=== PATIENT | male | born 1965 | race African-American/Black ===

== ENCOUNTER 2019-03-03 07:45 | Inpatient (IN) | payer MEDICAID ==
[2019-03-03] VITALS (7 sets, daily range): BP systolic 142–170; BP diastolic 97–106
[~2019-03-03] VITALS: Ht 170.2 cm; Wt 83.1 kg
[2019-03-03] MEDS ORDERED: SODIUM CHLORIDE 0.9% 1,000 ML IV ONE (08:05)
[2019-03-03] MEDS ORDERED: HALOPERIDOL LACTATE 5MG/ML VIAL IM ONE ×2 (08:29→08:30)
[2019-03-03 09:59] LABS: PROTHROMBIN TIME 10.7 sec (9.6-11.0)
[2019-03-03 10:02] LABS: BASOPHILS % 0.3 % (0.0-2.0); HEMATOCRIT. 42.3 % (42.0-52.0); HEMOGLOBIN. 14.5 g/dL (14.0-18.0); LYMPHOCYTES % 12.8 % (20.0-50.0); MEAN CORPUSCULAR VOLUME 90.7 fL (80.0-94.0); MEAN PLATELET VOLUME 9.7 fl (7.4-10.4); MONOCYTES % 2.6 % (2.0-8.0); NEUTROPHILS % 84.3 % (40.0-76.0); PLATELET 252 x1000/uL (130-400); RED BLOOD CELL COUNT 4.66 mill/uL (4.7-6.1)
[2019-03-03 10:02] LABS: CLARITY URINE CLOUDY (CLEAR); COLOR URINE YELLOW (YELLOW); KETONES URINE TRACE (NEGATIVE); LEUKOCYTE ESTERASE URINE 1+ (NEGATIVE); NITRITE URINE NEGATIVE (NEGATIVE); OCCULT BLOOD URINE 2+ (NEGATIVE); PROTEIN URINE 2+ (NEGATIVE); UROBILINOGEN URINE 0.2 E.U./dL (0.2-1.0)
[2019-03-03 10:25] LABS: CHLORIDE 99 mEq/L (98-107)
[2019-03-03] MEDS ORDERED: SODIUM CHLORIDE 0.9% 1000ML BAG (SEPSIS BOLUS) IV ONE (10:30)
[2019-03-03] MEDS ORDERED: CEFTRIAXONE 2 G PREMIX 50 ML IV ONE (10:30)
[2019-03-03 10:31] LABS: ETHANOL BLOOD < 10 mg/dL
[2019-03-03 10:34] LABS: *AMPHETAMINES SCREEN URINE NEGATIVE (NEGATIVE); *BARBITURATES SCREEN URINE NEGATIVE (NEGATIVE); *BENZODIAZEPINES SCREEN URINE NEGATIVE (NEGATIVE); CANNABINOID URINE SCREEN NEGATIVE (NEGATIVE); PHENCYCLIDINE URINE SCREEN NEGATIVE (NEGATIVE)
[2019-03-03 10:34] LABS: CREATINE KINASE 649 IU/L (39-308)
[2019-03-03 10:35] LABS: *COCAINE SCREEN URINE NEGATIVE (NEGATIVE); METHADONE URINE SCREEN NEGATIVE (NEGATIVE); OPIATES URINE SCREEN NEGATIVE (NEGATIVE)
[2019-03-03 10:37] LABS: LDL CHOLESTEROL 109 mg/dL (5-100)
[2019-03-03 10:45] LABS: CARBAMAZEPINE < 0.5 ug/mL (4-12); PHENOBARBITAL < 2.1 ug/mL (15.0-40.0)
[2019-03-03] MEDS ORDERED: ACETAMINOPHEN 325MG TABLET PO PRN (11:15)
[2019-03-03] MEDS ORDERED: IPRATROPIUM/ALBUTEROL 0.5-3(2.5)MG/3ML NEB HHN PRN (11:15)
[2019-03-03] MEDS ORDERED: ONDANSETRON HCL 4MG/2ML INJ IV PRN (11:15)
[2019-03-03] MEDS ORDERED: GUAIFENESIN 200MG/10ML SUGAR FREE UDC PO PRN (11:15)
[2019-03-03] MEDS ORDERED: DOCUSATE SODIUM 100MG CAPSULE PO PRN (11:15)
[2019-03-03] MEDS ORDERED: SODIUM CHLORIDE 0.9% 1,000 ML IV SCH (11:30)
[2019-03-03] MEDS: ENOXAPARIN 40MG/0.4ML SYR SUBCUT SCH (12:36)
[2019-03-03] MEDS ORDERED: HYDRALAZINE 20MG/ML VIAL IV NR (14:45)
[2019-03-03] MEDS ORDERED: CLONIDINE 0.1MG TABLET PO PRN (15:00)
[2019-03-03] MEDS ORDERED: DILTIAZEM HCL 5MG/ML 5ML VIAL IV PRN (15:00)
[2019-03-03] MEDS ORDERED: IOHEXOL-350 100 ML BOTTLE ONE (15:07)
[2019-03-03] MEDS ORDERED: ACETAMINOPHEN 650MG SUPP PR NR (15:30)
[2019-03-03 16:11] LABS: PHOSPHORUS 2.6 mg/dL (2.5-4.9)
[2019-03-03 16:18] LABS: CREATINE KINASE MB FRACTION 5.7 ng/mL (0.5-3.6)
[2019-03-03] MEDS: HALOPERIDOL LACTATE 5MG/ML VIAL IM PRN (16:26)
[2019-03-03] MEDS: DIPHENHYDRAMINE 50MG/ML VIAL IV PRN (18:51)
[2019-03-03] MEDS: DEXT 5%/0.45% NACL 1000ML 1,000 ML IV SCH (19:36)
[2019-03-03] MEDS ORDERED: DEXTROSE 50% WATER 50ML SYRINGE IV PRN (20:45)
[2019-03-03] MEDS ORDERED: LEVETIRACETAM 500MG PREMIX 100 ML IV SCH (21:00)
[2019-03-03] MEDS ORDERED: CLONIDINE HCL 0.2MG/24HR PATCH TD SCH (21:00)
[2019-03-03] MEDS: FAMOTIDINE 20MG TABLET PO SCH (21:00)
[2019-03-03] MEDS: INSULIN LISPRO 100 UNITS/ML SUBCUT SCH (21:45)
[2019-03-03] MEDS: LEVETIRACETAM 500MG in SODIUM CHLORIDE 0.9% 100ML IV SCH (21:45)
[2019-03-03] MEDS: PHENYTOIN SODIUM 300 MG in SODIUM CHLORIDE 0.9% 50 ML IV SCH (21:46)
[2019-03-03] MEDS: BLOOD SUGAR DIAGNOSTIC STRIP TEST SCH (21:46)
[2019-03-03] MEDS: LORAZEPAM 2MG/ML CPJ IV PRN (21:59)
[2019-03-03] MEDS ORDERED: PHENYTOIN SODIUM EXTENDED 100MG CAPSULE PO SCH (22:00)
[2019-03-04] VITALS (11 sets, daily range): BP systolic 108–176; BP diastolic 68–118
[2019-03-04 02:14] LABS: HEPATITIS B SURFACE ANTIGEN REACTIVE PEND CONFIR
[2019-03-04] MEDS: HALOPERIDOL LACTATE 5MG/ML VIAL IM PRN (03:32)
[2019-03-04] MEDS: LORAZEPAM 2MG/ML CPJ IV PRN ×2 (05:08→20:30)
[2019-03-04] MEDS: DEXT 5%/0.45% NACL 1000ML 1,000 ML IV SCH ×2 (06:55→18:43)
[2019-03-04 07:29] LABS: CHLORIDE 103 mEq/L (98-107)
[2019-03-04 07:46] LABS: PHOSPHORUS 2.9 mg/dL (2.5-4.9)
[2019-03-04] MEDS: BLOOD SUGAR DIAGNOSTIC STRIP TEST SCH ×4 (07:46→21:16)
[2019-03-04 07:47] LABS: LDL CHOLESTEROL 95 mg/dL (5-100)
[2019-03-04 07:50] LABS: HDL CHOLESTEROL 36 mg/dL (40-59)
[2019-03-04 07:59] LABS: BASOPHILS % 0.5 % (0.0-2.0); EOSINOPHILS % 0.7 % (0.0-5.0); HEMATOCRIT. 36.9 % (42.0-52.0); HEMOGLOBIN. 12.5 g/dL (14.0-18.0); LYMPHOCYTES % 20.2 % (20.0-50.0); MEAN CORPUSCULAR HEMOGLOBIN 30.7 pg (28.0-32.0); MEAN CORPUSCULAR VOLUME 90.8 fL (80.0-94.0); MEAN PLATELET VOLUME 9.6 fl (7.4-10.4); MONOCYTES % 6.5 % (2.0-8.0); NEUTROPHILS % 72.1 % (40.0-76.0); PLATELET 231 x1000/uL (130-400); RED BLOOD CELL COUNT 4.06 mill/uL (4.7-6.1); RED CELL DISTRIBUTION WIDTH 13.5 % (11.6-14.6)
[2019-03-04 08:03] LABS: CREATINE KINASE 2219 IU/L (39-308)
[2019-03-04] MEDS: FAMOTIDINE 20MG TABLET PO SCH ×2 (08:23→20:52)
[2019-03-04] MEDS: LEVETIRACETAM 500MG in SODIUM CHLORIDE 0.9% 100ML IV SCH ×2 (08:47→21:23)
[2019-03-04] MEDS: INSULIN LISPRO 100 UNITS/ML SUBCUT SCH ×4 (08:48→21:19)
[2019-03-04] MEDS: CEFTRIAXONE 1 G PREMIX 50 ML IV SCH (10:09)
[2019-03-04] MEDS: ENOXAPARIN 40MG/0.4ML SYR SUBCUT SCH (11:59)
[2019-03-04] MEDS: NEOMY SULF/BACITRAC ZN/POLY OINT 28GM TOP SCH (12:56)
[2019-03-04] MEDS ORDERED: VANCOMYCIN 1,750 MG in DEXT 5% WATER 500 ML IV NR (15:30)
[2019-03-04] MEDS: AMLODIPINE 5MG TABLET PO SCH ×2 (15:54→16:38)
[2019-03-04 16:40] LABS: T4 FREE 1.18 ng/dL (0.76-1.46)
[2019-03-04 17:45] LABS: FOLIC ACID (FOLATE) SERUM 11.5 ng/mL (>5.38)
[2019-03-04] MEDS: PHENYTOIN SODIUM 300 MG in SODIUM CHLORIDE 0.9% 50 ML IV SCH (22:12)
[2019-03-05] VITALS (23 sets, daily range): BP systolic 139–187; BP diastolic 64–113
[2019-03-05] MEDS: HALOPERIDOL LACTATE 5MG/ML VIAL IM PRN (02:00)
[2019-03-05] MEDS ORDERED: VANCOMYCIN 1250MG in DEXTROSE 5% WATER 250ML IV SCH ×2 (02:00→18:00)
[2019-03-05] MEDS: LORAZEPAM 2MG/ML CPJ IV PRN ×3 (05:21→19:14)
[2019-03-05 06:37] LABS: CHLORIDE 104 mEq/L (98-107)
[2019-03-05 06:48] LABS: PHOSPHORUS 2.9 mg/dL (2.5-4.9)
[2019-03-05 07:08] LABS: CREATINE KINASE 2412 IU/L (39-308)
[2019-03-05 07:19] LABS: BASOPHILS % 0.6 % (0.0-2.0); HEMATOCRIT. 38.2 % (42.0-52.0); LYMPHOCYTES % 30.9 % (20.0-50.0); MEAN CORPUSCULAR HEMOGLOBIN 30.9 pg (28.0-32.0); MEAN CORPUSCULAR VOLUME 90.9 fL (80.0-94.0); MEAN PLATELET VOLUME 9.5 fl (7.4-10.4); NEUTROPHILS % 58.5 % (40.0-76.0); PLATELET 245 x1000/uL (130-400); RED BLOOD CELL COUNT 4.21 mill/uL (4.7-6.1); RED CELL DISTRIBUTION WIDTH 13.2 % (11.6-14.6)
[2019-03-05] MEDS: BLOOD SUGAR DIAGNOSTIC STRIP TEST SCH ×4 (07:30→21:42)
[2019-03-05 09:06] LABS: HIV SCREEN 4G Non Reactive (Non Reactive)
[2019-03-05] MEDS: AMLODIPINE 5MG TABLET PO SCH (09:16)
[2019-03-05] MEDS: LEVETIRACETAM 500MG in SODIUM CHLORIDE 0.9% 100ML IV SCH ×2 (09:22→21:18)
[2019-03-05] MEDS: DEXT 5%/0.45% NACL 1000ML 1,000 ML IV SCH ×2 (09:22→18:12)
[2019-03-05] MEDS: FAMOTIDINE 20MG TABLET PO SCH ×2 (09:50→21:18)
[2019-03-05] MEDS: CEFTRIAXONE 1 G PREMIX 50 ML IV SCH (10:17)
[2019-03-05] MEDS: INSULIN LISPRO 100 UNITS/ML SUBCUT SCH ×4 (10:17→21:19)
[2019-03-05] MEDS ORDERED: PHENYTOIN SODIUM 700 MG in SODIUM CHLORIDE 0.9% 100 ML IV NR (10:30)
[2019-03-05] MEDS: ENOXAPARIN 40MG/0.4ML SYR SUBCUT SCH (10:31)
[2019-03-05 13:11] LABS: HBSAG CONFIRMATION Positive (.); HBSAG SCREEN Confirm. indicated (Negative)
[2019-03-05] MEDS: NEOMY SULF/BACITRAC ZN/POLY OINT 28GM TOP SCH (14:21)
[2019-03-05] MEDS ORDERED: CLONIDINE HCL 0.3MG/24HR PATCH TD SCH (16:00)
[2019-03-05] MEDS: HYDRALAZINE 20MG/ML VIAL IV PRN (19:58)
[2019-03-05] MEDS: PHENYTOIN SODIUM 300 MG in SODIUM CHLORIDE 0.9% 50 ML IV SCH (21:30)
[2019-03-06] VITALS (13 sets, daily range): BP systolic 90–164; BP diastolic 53–103
[2019-03-06] MEDS: LORAZEPAM 2MG/ML CPJ IV PRN (01:31)
[2019-03-06 06:53] LABS: BASOPHILS % 0.6 % (0.0-2.0); EOSINOPHILS % 1.7 % (0.0-5.0); HEMATOCRIT. 39.3 % (42.0-52.0); HEMOGLOBIN. 13.2 g/dL (14.0-18.0); LYMPHOCYTES % 20.5 % (20.0-50.0); MEAN CORPUSCULAR HEMOGLOBIN 30.6 pg (28.0-32.0); MEAN CORPUSCULAR VOLUME 90.8 fL (80.0-94.0); MEAN PLATELET VOLUME 9.4 fl (7.4-10.4); MONOCYTES % 6.1 % (2.0-8.0); NEUTROPHILS % 71.1 % (40.0-76.0); PLATELET 264 x1000/uL (130-400); RED BLOOD CELL COUNT 4.33 mill/uL (4.7-6.1); RED CELL DISTRIBUTION WIDTH 13.4 % (11.6-14.6)
[2019-03-06] MEDS: HYDRALAZINE 20MG/ML VIAL IV PRN (06:56)
[2019-03-06] MEDS: BLOOD SUGAR DIAGNOSTIC STRIP TEST SCH ×4 (07:30→21:00)
[2019-03-06 08:11] LABS: CHLORIDE 103 mEq/L (98-107)
[2019-03-06 08:19] LABS: PHOSPHORUS 2.5 mg/dL (2.5-4.9)
[2019-03-06 08:22] LABS: VANCOMYCIN TROUGH 14.7 ug/mL (5.0-10.0)
[2019-03-06] MEDS: LEVETIRACETAM 500MG in SODIUM CHLORIDE 0.9% 100ML IV SCH ×2 (08:32→21:55)
[2019-03-06] MEDS: DEXT 5%/0.45% NACL 1000ML 1,000 ML IV SCH (08:32)
[2019-03-06 08:35] LABS: CREATINE KINASE 2545 IU/L (39-308)
[2019-03-06] MEDS: FAMOTIDINE 20MG TABLET PO SCH ×2 (08:35→21:55)
[2019-03-06] MEDS: AMLODIPINE 10MG TABLET PO SCH (08:35)
[2019-03-06] MEDS: INSULIN LISPRO 100 UNITS/ML SUBCUT SCH ×4 (08:36→21:56)
[2019-03-06] MEDS: NEOMY SULF/BACITRAC ZN/POLY OINT 28GM TOP SCH (08:37)
[2019-03-06] MEDS: CEFTRIAXONE 1 G PREMIX 50 ML IV SCH (10:53)
[2019-03-06] MEDS: INSULIN GLARGINE UD 100 UNITS/ML SYR SUBCUT SCH ×2 (10:54→23:08)
[2019-03-06] MEDS: ENOXAPARIN 40MG/0.4ML SYR SUBCUT SCH (12:51)
[2019-03-06] MEDS: CLONIDINE 0.2MG TABLET PO SCH ×2 (13:50→23:07)
[2019-03-06] MEDS ORDERED: PHENYTOIN SODIUM 600 MG in SODIUM CHLORIDE 0.9% 100 ML IV SCH (15:30)
[2019-03-06] MEDS: HYDRALAZINE HCL 50MG TABLET PO SCH (21:55)
[2019-03-06] MEDS: PHENYTOIN SODIUM 300 MG in SODIUM CHLORIDE 0.9% 50 ML IV SCH (23:08)
[2019-03-07] VITALS (10 sets, daily range): BP systolic 118–144; BP diastolic 75–98
[2019-03-07] MEDS: LORAZEPAM 2MG/ML CPJ IV PRN (00:52)
[2019-03-07] MEDS: HALOPERIDOL LACTATE 5MG/ML VIAL IM PRN (02:09)
[2019-03-07] MEDS: DIPHENHYDRAMINE 50MG/ML VIAL IV PRN (02:46)
[2019-03-07] MEDS: CLONIDINE 0.2MG TABLET PO SCH (06:00)
[2019-03-07] MEDS: DEXT 5%/0.45% NACL 1000ML 1,000 ML IV SCH ×3 (06:12→21:30)
[2019-03-07] MEDS: BLOOD SUGAR DIAGNOSTIC STRIP TEST SCH ×4 (06:13→21:31)
[2019-03-07] MEDS: INSULIN LISPRO 100 UNITS/ML SUBCUT SCH ×5 (07:24→21:33)
[2019-03-07 08:49] LABS: BASOPHILS % 0.6 % (0.0-2.0); EOSINOPHILS % 2.6 % (0.0-5.0); HEMOGLOBIN. 12.4 g/dL (14.0-18.0); LYMPHOCYTES % 25.6 % (20.0-50.0); MEAN CORPUSCULAR HEMOGLOBIN 30.3 pg (28.0-32.0); MEAN CORPUSCULAR VOLUME 90.3 fL (80.0-94.0); MEAN PLATELET VOLUME 9.2 fl (7.4-10.4); MONOCYTES % 6.5 % (2.0-8.0); NEUTROPHILS % 64.7 % (40.0-76.0); PLATELET 262 x1000/uL (130-400); RED CELL DISTRIBUTION WIDTH 13.4 % (11.6-14.6)
[2019-03-07 09:06] LABS: CHLORIDE 104 mEq/L (98-107)
[2019-03-07 09:12] LABS: PHOSPHORUS 2.9 mg/dL (2.5-4.9)
[2019-03-07] MEDS: HYDRALAZINE HCL 50MG TABLET PO SCH ×2 (09:17→21:15)
[2019-03-07] MEDS: FAMOTIDINE 20MG TABLET PO SCH ×2 (09:17→21:14)
[2019-03-07] MEDS: AMLODIPINE 10MG TABLET PO SCH (09:17)
[2019-03-07] MEDS: LEVETIRACETAM 500MG in SODIUM CHLORIDE 0.9% 100ML IV SCH ×2 (09:17→21:14)
[2019-03-07 09:28] LABS: CREATINE KINASE 1537 IU/L (39-308)
[2019-03-07] MEDS ORDERED: POTASSIUM CHLORIDE 20MEQ/PACKET PO NR (09:30)
[2019-03-07] MEDS: NEOMY SULF/BACITRAC ZN/POLY OINT 28GM TOP SCH (09:34)
[2019-03-07] MEDS: CEFTRIAXONE 1 G PREMIX 50 ML IV SCH (10:30)
[2019-03-07] MEDS: INSULIN GLARGINE UD 100 UNITS/ML SYR SUBCUT SCH ×2 (10:31→21:32)
[2019-03-07] MEDS: ENOXAPARIN 40MG/0.4ML SYR SUBCUT SCH (10:59)
[2019-03-07] MEDS: CLONIDINE 0.3MG TABLET PO SCH ×2 (14:00→21:14)
[2019-03-07] MEDS: PHENYTOIN SODIUM 300 MG in SODIUM CHLORIDE 0.9% 50 ML IV SCH (21:31)
[2019-03-08] VITALS (14 sets, daily range): BP systolic 99–162; BP diastolic 44–101
[2019-03-08 07:00] LABS: BASOPHILS % 0.9 % (0.0-2.0); HEMATOCRIT. 35.6 % (42.0-52.0); HEMOGLOBIN. 12.1 g/dL (14.0-18.0); LYMPHOCYTES % 23.1 % (20.0-50.0); MEAN CORPUSCULAR HEMOGLOBIN 30.7 pg (28.0-32.0); MEAN CORPUSCULAR VOLUME 90.6 fL (80.0-94.0); MEAN PLATELET VOLUME 9.1 fl (7.4-10.4); MONOCYTES % 6.5 % (2.0-8.0); NEUTROPHILS % 66.5 % (40.0-76.0); PLATELET 251 x1000/uL (130-400); RED BLOOD CELL COUNT 3.93 mill/uL (4.7-6.1); RED CELL DISTRIBUTION WIDTH 13.4 % (11.6-14.6)
[2019-03-08 07:07] LABS: CHLORIDE 105 mEq/L (98-107)
[2019-03-08 07:15] LABS: PHOSPHORUS 3.1 mg/dL (2.5-4.9)
[2019-03-08] MEDS: CLONIDINE 0.3MG TABLET PO SCH ×3 (07:15→21:18)
[2019-03-08 07:17] LABS: CREATINE KINASE 818 IU/L (39-308)
[2019-03-08] MEDS: BLOOD SUGAR DIAGNOSTIC STRIP TEST SCH ×4 (07:17→21:25)
[2019-03-08] MEDS: LEVETIRACETAM 500MG in SODIUM CHLORIDE 0.9% 100ML IV SCH ×2 (08:33→21:18)
[2019-03-08] MEDS: AMLODIPINE 10MG TABLET PO SCH (08:33)
[2019-03-08] MEDS: NEOMY SULF/BACITRAC ZN/POLY OINT 28GM TOP SCH (08:33)
[2019-03-08] MEDS: HYDRALAZINE HCL 50MG TABLET PO SCH ×2 (08:33→21:19)
[2019-03-08] MEDS: INSULIN LISPRO 100 UNITS/ML SUBCUT SCH ×4 (08:34→21:32)
[2019-03-08] MEDS: FAMOTIDINE 20MG TABLET PO SCH ×2 (08:38→21:19)
[2019-03-08] MEDS: ENOXAPARIN 40MG/0.4ML SYR SUBCUT SCH (10:46)
[2019-03-08] MEDS: INSULIN GLARGINE UD 100 UNITS/ML SYR SUBCUT SCH ×2 (10:47→21:25)
[2019-03-08] MEDS: DEXT 5%/0.45% NACL 1000ML 1,000 ML IV SCH ×2 (10:50→13:19)
[2019-03-08] MEDS: DOCUSATE SODIUM 100MG CAPSULE PO SCH (16:58)
[2019-03-08] MEDS: SODIUM CHLORIDE 0.45% 1,000 ML IV SCH (17:46)
[2019-03-08] MEDS: PHENYTOIN SODIUM 300 MG in SODIUM CHLORIDE 0.9% 50 ML IV SCH (21:53)
[2019-03-09] VITALS (15 sets, daily range): BP systolic 92–168; BP diastolic 63–103
[2019-03-09] MEDS: CLONIDINE 0.3MG TABLET PO SCH ×3 (06:34→21:17)
[2019-03-09] MEDS: BLOOD SUGAR DIAGNOSTIC STRIP TEST SCH ×4 (06:42→21:09)
[2019-03-09 06:46] LABS: CHLORIDE 104 mEq/L (98-107)
[2019-03-09 07:02] LABS: BASOPHILS % 0.7 % (0.0-2.0); EOSINOPHILS % 4.2 % (0.0-5.0); HEMATOCRIT. 34.9 % (42.0-52.0); HEMOGLOBIN. 11.7 g/dL (14.0-18.0); LYMPHOCYTES % 26.2 % (20.0-50.0); MEAN CORPUSCULAR HEMOGLOBIN 30.7 pg (28.0-32.0); MEAN CORPUSCULAR VOLUME 91.2 fL (80.0-94.0); MEAN PLATELET VOLUME 9.3 fl (7.4-10.4); NEUTROPHILS % 61.9 % (40.0-76.0); PLATELET 245 x1000/uL (130-400); RED BLOOD CELL COUNT 3.82 mill/uL (4.7-6.1); RED CELL DISTRIBUTION WIDTH 13.6 % (11.6-14.6)
[2019-03-09 07:03] LABS: CREATINE KINASE 479 IU/L (39-308)
[2019-03-09] MEDS: AMLODIPINE 10MG TABLET PO SCH (08:27)
[2019-03-09] MEDS: DOCUSATE SODIUM 100MG CAPSULE PO SCH ×2 (08:27→17:50)
[2019-03-09] MEDS: HYDRALAZINE HCL 50MG TABLET PO SCH ×2 (08:27→21:18)
[2019-03-09] MEDS: FAMOTIDINE 20MG TABLET PO SCH ×2 (08:27→21:17)
[2019-03-09] MEDS: NEOMY SULF/BACITRAC ZN/POLY OINT 28GM TOP SCH (08:27)
[2019-03-09] MEDS: LEVETIRACETAM 500MG in SODIUM CHLORIDE 0.9% 100ML IV SCH ×2 (08:27→21:14)
[2019-03-09] MEDS: INSULIN LISPRO 100 UNITS/ML SUBCUT SCH ×4 (08:28→21:20)
[2019-03-09] MEDS: ENOXAPARIN 40MG/0.4ML SYR SUBCUT SCH (11:21)
[2019-03-09] MEDS: INSULIN GLARGINE UD 100 UNITS/ML SYR SUBCUT SCH ×2 (11:22→21:20)
[2019-03-09] MEDS: SODIUM CHLORIDE 0.45% 1,000 ML IV SCH (12:45)
[2019-03-09] MEDS: PHENYTOIN SODIUM 300 MG in SODIUM CHLORIDE 0.9% 50 ML IV SCH (21:58)
[2019-03-10] VITALS (9 sets, daily range): BP systolic 98–142; BP diastolic 65–94
[2019-03-10] MEDS: BLOOD SUGAR DIAGNOSTIC STRIP TEST SCH ×3 (06:59→21:42)
[2019-03-10] MEDS: LEVETIRACETAM 500MG in SODIUM CHLORIDE 0.9% 100ML IV SCH ×2 (08:34→21:45)
[2019-03-10] MEDS: DOCUSATE SODIUM 100MG CAPSULE PO SCH ×2 (08:34→18:28)
[2019-03-10] MEDS: FAMOTIDINE 20MG TABLET PO SCH ×2 (08:34→21:50)
[2019-03-10] MEDS: AMLODIPINE 10MG TABLET PO SCH (08:37)
[2019-03-10] MEDS: CLONIDINE 0.3MG TABLET PO SCH ×2 (08:37→21:40)
[2019-03-10] MEDS: HYDRALAZINE HCL 50MG TABLET PO SCH ×2 (08:37→21:49)
[2019-03-10] MEDS: SODIUM CHLORIDE 0.45% 1,000 ML IV SCH (08:40)
[2019-03-10] MEDS: INSULIN LISPRO 100 UNITS/ML SUBCUT SCH ×4 (08:52→21:41)
[2019-03-10 09:06] LABS: *CREATININE RANDOM URINE 157.7 mg/dL (Not Estab.)
[2019-03-10] MEDS: NEOMY SULF/BACITRAC ZN/POLY OINT 28GM TOP SCH (12:17)
[2019-03-10] MEDS: ENOXAPARIN 40MG/0.4ML SYR SUBCUT SCH (12:18)
[2019-03-10] MEDS: INSULIN GLARGINE UD 100 UNITS/ML SYR SUBCUT SCH ×2 (12:20→21:41)
[2019-03-10] MEDS: PHENYTOIN SODIUM 300 MG in SODIUM CHLORIDE 0.9% 50 ML IV SCH (21:45)
[2019-03-11 00:42] VITALS: BP 134/77
[2019-03-11 04:00] VITALS: BP 133/82
[2019-03-11] MEDS: BLOOD SUGAR DIAGNOSTIC STRIP TEST SCH ×4 (06:28→21:18)
[2019-03-11 07:00] LABS: BASOPHILS % 1.4 % (0.0-2.0); EOSINOPHILS % 5.2 % (0.0-5.0); HEMATOCRIT. 36.1 % (42.0-52.0); HEMOGLOBIN. 12.2 g/dL (14.0-18.0); LYMPHOCYTES % 30.9 % (20.0-50.0); MEAN CORPUSCULAR HEMOGLOBIN 30.8 pg (28.0-32.0); MEAN CORPUSCULAR VOLUME 91.1 fL (80.0-94.0); MEAN PLATELET VOLUME 8.8 fl (7.4-10.4); MONOCYTES % 9.7 % (2.0-8.0); NEUTROPHILS % 52.8 % (40.0-76.0); PLATELET 252 x1000/uL (130-400); RED BLOOD CELL COUNT 3.97 mill/uL (4.7-6.1); RED CELL DISTRIBUTION WIDTH 13.3 % (11.6-14.6)
[2019-03-11 07:08] LABS: CHLORIDE 103 mEq/L (98-107)
[2019-03-11 07:26] LABS: PHOSPHORUS 3.5 mg/dL (2.5-4.9)
[2019-03-11 07:29] LABS: CREATINE KINASE 247 IU/L (39-308)
[2019-03-11] MEDS: INSULIN LISPRO 100 UNITS/ML SUBCUT SCH ×4 (07:50→21:14)
[2019-03-11 08:00] VITALS: BP 106/70
[2019-03-11] MEDS: HYDRALAZINE HCL 50MG TABLET PO SCH ×2 (09:00→21:16)
[2019-03-11] MEDS: AMLODIPINE 10MG TABLET PO SCH (09:00)
[2019-03-11] MEDS: CLONIDINE 0.3MG TABLET PO SCH ×2 (09:00→21:18)
[2019-03-11] MEDS: FAMOTIDINE 20MG TABLET PO SCH ×2 (09:02→21:16)
[2019-03-11] MEDS: DOCUSATE SODIUM 100MG CAPSULE PO SCH ×2 (09:02→17:54)
[2019-03-11] MEDS: LEVETIRACETAM 500MG in SODIUM CHLORIDE 0.9% 100ML IV SCH ×2 (09:07→21:10)
[2019-03-11] MEDS: NEOMY SULF/BACITRAC ZN/POLY OINT 28GM TOP SCH (09:07)
[2019-03-11] MEDS: INSULIN GLARGINE UD 100 UNITS/ML SYR SUBCUT SCH ×2 (09:08→21:14)
[2019-03-11 12:00] VITALS: BP 102/59
[2019-03-11] MEDS ORDERED: AMLO10TA80 PO (12:17)
[2019-03-11] MEDS ORDERED: PHEN300C6 MT (12:17)
[2019-03-11] MEDS ORDERED: FAMO20TA8 PO (12:17)
[2019-03-11] MEDS ORDERED: CLON0.3T4 PO (12:17)
[2019-03-11] MEDS ORDERED: LEVE500T19 MT (12:17)
[2019-03-11] MEDS: ENOXAPARIN 40MG/0.4ML SYR SUBCUT SCH (12:18)
[2019-03-11] MEDS ORDERED: HYDR-4135 PO (12:21)
[2019-03-11] MEDS ORDERED: METF-414 MT (12:21)
[2019-03-11 16:00] VITALS: BP 135/86
[2019-03-11 20:00] VITALS: BP 143/91
[2019-03-11] MEDS: PHENYTOIN SODIUM 300 MG in SODIUM CHLORIDE 0.9% 50 ML IV SCH (22:27)
[2019-03-12] VITALS: BP 127/80
[2019-03-12 04:49] VITALS: BP 142/92
[2019-03-12] MEDS: BLOOD SUGAR DIAGNOSTIC STRIP TEST SCH ×4 (06:33→21:58)
[2019-03-12 08:00] VITALS: BP 116/83
[2019-03-12] MEDS: INSULIN LISPRO 100 UNITS/ML SUBCUT SCH ×4 (09:00→21:57)
[2019-03-12] MEDS: CLONIDINE 0.3MG TABLET PO SCH ×2 (09:09→21:58)
[2019-03-12] MEDS: DOCUSATE SODIUM 100MG CAPSULE PO SCH ×2 (09:09→17:17)
[2019-03-12] MEDS: AMLODIPINE 10MG TABLET PO SCH (09:09)
[2019-03-12] MEDS: FAMOTIDINE 20MG TABLET PO SCH ×2 (09:09→21:57)
[2019-03-12] MEDS: HYDRALAZINE HCL 50MG TABLET PO SCH ×2 (09:10→21:58)
[2019-03-12] MEDS: LEVETIRACETAM 500MG in SODIUM CHLORIDE 0.9% 100ML IV SCH ×2 (09:16→21:57)
[2019-03-12] MEDS: NEOMY SULF/BACITRAC ZN/POLY OINT 28GM TOP SCH (09:16)
[2019-03-12] MEDS: INSULIN GLARGINE UD 100 UNITS/ML SYR SUBCUT SCH ×2 (11:00→21:57)
[2019-03-12 12:00] VITALS: BP 120/66
[2019-03-12] MEDS: ENOXAPARIN 40MG/0.4ML SYR SUBCUT SCH (12:01)
[2019-03-12 16:00] VITALS: BP 142/90
[2019-03-12 20:44] VITALS: BP 131/88
[2019-03-12] MEDS: PHENYTOIN SODIUM 300 MG in SODIUM CHLORIDE 0.9% 50 ML IV SCH (23:03)
[2019-03-13] VITALS (7 sets, daily range): BP systolic 116–144; BP diastolic 70–99
[2019-03-13] MEDS: BLOOD SUGAR DIAGNOSTIC STRIP TEST SCH ×2 (06:35→11:39)
[2019-03-13] MEDS: LEVETIRACETAM 500MG in SODIUM CHLORIDE 0.9% 100ML IV SCH (09:00)
[2019-03-13] MEDS: CLONIDINE 0.3MG TABLET PO SCH (09:01)
[2019-03-13] MEDS: AMLODIPINE 10MG TABLET PO SCH (09:02)
[2019-03-13] MEDS: DOCUSATE SODIUM 100MG CAPSULE PO SCH (09:02)
[2019-03-13] MEDS: FAMOTIDINE 20MG TABLET PO SCH (09:02)
[2019-03-13] MEDS: HYDRALAZINE HCL 50MG TABLET PO SCH (09:03)
[2019-03-13] MEDS: INSULIN LISPRO 100 UNITS/ML SUBCUT SCH ×2 (09:06→13:37)
[2019-03-13] MEDS: NEOMY SULF/BACITRAC ZN/POLY OINT 28GM TOP SCH (09:12)
[2019-03-13] MEDS ORDERED: LEVETIRACETAM 500MG TABLET PO SCH (10:58)
[2019-03-13] MEDS: INSULIN GLARGINE UD 100 UNITS/ML SYR SUBCUT SCH (11:41)
[2019-03-13] MEDS: ENOXAPARIN 40MG/0.4ML SYR SUBCUT SCH (12:20)
[2019-03-13 13:06] LABS: ALBUMIN URINE 57.6 % (.); ALPHA-1-GLOBULIN URINE 6.3 % (.); ALPHA-2-GLOBULIN URINE 9.5 % (.); BETA GLOBULIN URINE 20.5 % (.); TOTAL PROTEIN RANDOM URINE 37.7 mg/dL (Not Estab.)
[2019-03-13] MEDS ORDERED: ATORVASTATIN CALCIUM 10MG TABLET PO NR (14:30)
== END 2019-03-13 19:05 | disposition home or self-care (01) | DRG 720 ==
LOC: ER 07:45 → ENRESERV 10:29 → 5EST 10:30 → EDBEDREQ 10:32 → EDBEDREQSVC 10:32 → EDBEDREQTM 10:32 → 5EST 22:30 → 6WST 03-10 17:21
PROVIDERS: ADMIT Internal Medicine; ATTEND Internal Medicine
DX: A41.9 Sepsis, unspecified organism (principal); N17.9 Acute kidney failure, unspecified; G92 Toxic encephalopathy; E46 Unspecified protein-calorie malnutrition; E11.51 Type 2 diabetes mellitus with diabetic peripheral angiopathy without gangrene; M62.82 Rhabdomyolysis; N39.0 Urinary tract infection, site not specified; I10 Essential (primary) hypertension; F32.9 Major depressive disorder, single episode, unspecified; R33.9 Retention of urine, unspecified; E86.0 Dehydration; I34.0 Nonrheumatic mitral (valve) insufficiency; F43.10 Post-traumatic stress disorder, unspecified; G40.909 Epilepsy, unspecified, not intractable, without status epilepticus; L81.6 Other disorders of diminished melanin formation; S81.812A Laceration without foreign body, left lower leg, initial encounter; S81.811A Laceration without foreign body, right lower leg, initial encounter; X58.XXXA Exposure to other specified factors, initial encounter; Y93.89 Activity, other specified; Y92.89 Other specified places as the place of occurrence of the external cause; Y99.8 Other external cause status; Z78.1 Physical restraint status; Z79.4 Long term (current) use of insulin; Z86.73 Personal history of transient ischemic attack (TIA), and cerebral infarction without residual deficits; Z91.19 Patient's noncompliance with other medical treatment and regimen; Z89.422 Acquired absence of other left toe(s)
CPT/HCPCS: 36415; 70496; 70551; 71045; 74018; 76705; 80048; 80061; 80156; 80165; 80184; 80185; 80202; 80305; 80307; 80320; 80329; 81003; 82043; 82140; 82550; 82553; 82570; 82607; 82746; 82962; 83036; 83605; 83721; 83735; 83880; 84100; 84145; 84156; 84166; 84439; 84443; 84481; 84484; 86803; 86850; 86900; 87340; 87389; 92610; 93005; 93306; 93970; 96361; 96365; 96372; 97112; 97116; 97162; 97167; 97530; 99291; J0360; J0696; J1165; J1200; J1630; J1650; J1815; J1953; J2060; J3370; J3490; J7030; J7050; J7060; J7070; Q9967; G0480

== ENCOUNTER 2019-04-20 02:21 | Emergency (ER) | payer MEDICAID ==
[~2019-04-20] VITALS: Ht 182.9 cm; Wt 84.0 kg
[~2019-04-20 02:21] MED LIST: AMLO10TA80 PO; CLON0.3T4 PO; FAMO20TA8 PO; HYDR-4135 PO; LEVE500T19 MT; METF-414 MT; PHEN300C6 MT
[2019-04-20] MEDS ORDERED: LIDOCAINE HCL/PF 1% 10 MG/ML 5ML VIAL IJ ONE (03:00)
[2019-04-20] MEDS ORDERED: BACITRACIN ZINC OINT UDPKT TOP ONE (03:00)
[2019-04-20 04:02] VITALS: BP 146/97
== END 2019-04-20 04:09 | disposition home or self-care (01) ==
LOC: ER 02:21
DX: S61.412A Laceration without foreign body of left hand, initial encounter (principal); W26.0XXA Contact with knife, initial encounter; Y93.89 Activity, other specified; Y92.89 Other specified places as the place of occurrence of the external cause; Y99.8 Other external cause status; E11.9 Type 2 diabetes mellitus without complications; Z98.890 Other specified postprocedural states; Z79.899 Other long term (current) drug therapy
CPT/HCPCS: 12002; 99283; J3490; Z7610

== ENCOUNTER 2019-08-12 20:58 | Emergency (ER) | payer MEDICAID ==
[~2019-08-12] VITALS: Ht 182.9 cm; Wt 84.0 kg
[2019-08-12 21:34] LABS: BASOPHILS % 0.6 % (0.0-2.0); EOSINOPHILS % 6.1 % (0.0-5.0); HEMATOCRIT. 44.8 % (42.0-52.0); HEMOGLOBIN. 15.2 g/dL (14.0-18.0); MEAN CORPUSCULAR HEMOGLOBIN 31.3 pg (28.0-32.0); MEAN CORPUSCULAR VOLUME 92.2 fL (80.0-94.0); MEAN PLATELET VOLUME 9.4 fl (7.4-10.4); MONOCYTES % 4.1 % (2.0-8.0); NEUTROPHILS % 62.2 % (40.0-76.0); PLATELET 188 x1000/uL (130-400); RED BLOOD CELL COUNT 4.86 mill/uL (4.7-6.1); RED CELL DISTRIBUTION WIDTH 14.4 % (11.6-14.6)
[2019-08-12 21:35] LABS: CHLORIDE 100 mEq/L (98-107)
[2019-08-12 21:39] LABS: ETHANOL BLOOD < 10 mg/dL
[2019-08-12 22:33] LABS: CLARITY URINE CLEAR (CLEAR); COLOR URINE YELLOW (YELLOW); KETONES URINE NEGATIVE (NEGATIVE); LEUKOCYTE ESTERASE URINE NEGATIVE (NEGATIVE); NITRITE URINE NEGATIVE (NEGATIVE); OCCULT BLOOD URINE TRACE (NEGATIVE); PROTEIN URINE 1+ (NEGATIVE); SPECIFIC GRAVITY URINE 1.016 (1.005-1.030); UROBILINOGEN URINE 0.2 E.U./dL (0.2-1.0)
[2019-08-12 22:48] LABS: *AMPHETAMINES SCREEN URINE NEGATIVE (NEGATIVE); *BARBITURATES SCREEN URINE NEGATIVE (NEGATIVE); *BENZODIAZEPINES SCREEN URINE NEGATIVE (NEGATIVE); *COCAINE SCREEN URINE NEGATIVE (NEGATIVE); CANNABINOID URINE SCREEN NEGATIVE (NEGATIVE); METHADONE URINE SCREEN NEGATIVE (NEGATIVE); OPIATES URINE SCREEN NEGATIVE (NEGATIVE); PHENCYCLIDINE URINE SCREEN NEGATIVE (NEGATIVE)
[2019-08-12] MEDS ORDERED: DEXTROSE 50% WATER 50ML SYRINGE IV ONE (23:15)
[2019-08-12] MEDS ORDERED: CLONIDINE 0.2MG TABLET PO ONE (23:15)
[2019-08-13 00:44] VITALS: BP 149/99
== END 2019-08-13 00:45 | disposition home or self-care (01) ==
LOC: ER 20:58
DX: E11.649 Type 2 diabetes mellitus with hypoglycemia without coma (principal); I10 Essential (primary) hypertension; R41.82 Altered mental status, unspecified; Z79.899 Other long term (current) drug therapy
CPT/HCPCS: 36415; 71045; 80053; 80305; 80320; 81003; 82962; 84484; 85025; 93005; 96374; 99285; G0480

== ENCOUNTER 2020-04-29 17:54 | Emergency (ER) | payer OTHER ==
[~2020-04-29] VITALS: Ht 182.9 cm; Wt 88.0 kg
[~2020-04-29 17:54] MED LIST changes: +FINA5TAB11 PO; +HYDR100T26 PO; +LANTUSUD SUBCUT; +LOSA100T3 PO; +METO100T16 PO; +METO5TAB86 MT; +MINO10TA16 PO; +OMEP20TA2 MT
[2020-04-29 17:56] VITALS: BP 166/101
[2020-04-29 21:09] LABS: BASOPHILS % 1.1 % (0.0-2.0); EOSINOPHILS % 6.5 % (0.0-5.0); HEMATOCRIT. 34.9 % (42.0-52.0); HEMOGLOBIN. 11.5 g/dL (14.0-18.0); LYMPHOCYTES % 24.6 % (20.0-50.0); MEAN CORPUSCULAR HEMOGLOBIN 30.3 pg (28.0-32.0); MEAN CORPUSCULAR VOLUME 91.8 fL (80.0-94.0); MEAN PLATELET VOLUME 9.3 fl (7.4-10.4); MONOCYTES % 8.6 % (2.0-8.0); NEUTROPHILS % 59.2 % (40.0-76.0); PLATELET 206 x1000/uL (130-400); RED CELL DISTRIBUTION WIDTH 14.4 % (11.6-14.6)
[2020-04-29 21:26] LABS: CLARITY URINE CLEAR (CLEAR); COLOR URINE YELLOW (YELLOW); KETONES URINE NEGATIVE (NEGATIVE); LEUKOCYTE ESTERASE URINE 2+ (NEGATIVE); NITRITE URINE NEGATIVE (NEGATIVE); OCCULT BLOOD URINE 2+ (NEGATIVE); PROTEIN URINE 1+ (NEGATIVE); SPECIFIC GRAVITY URINE 1.013 (1.005-1.030); UROBILINOGEN URINE 0.2 E.U./dL (0.2-1.0)
[2020-04-29] MEDS ORDERED: CEFTRIAXONE 1 G PREMIX 50 ML IV ONE (21:45)
[2020-04-29] MEDS ORDERED: CEFTRIAXONE SODIUM 1 G/VIAL IM SCH (22:15)
[2020-04-29] MEDS ORDERED: LIDOCAINE HCL 1% 20ML VIAL (Pyxis) INJ INFIL SCH (22:15)
== END 2020-04-29 22:55 | disposition left against medical advice (07) ==
LOC: ER 17:54
DX: Z46.6 Encounter for fitting and adjustment of urinary device (principal); N40.1 Benign prostatic hyperplasia with lower urinary tract symptoms; R33.8 Other retention of urine; I10 Essential (primary) hypertension; E11.9 Type 2 diabetes mellitus without complications; G40.909 Epilepsy, unspecified, not intractable, without status epilepticus; Z89.412 Acquired absence of left great toe
CPT/HCPCS: 36415; 80048; 81003; 85025; 87077; 87086; 87186; 93005; 99284; J3490; J0696; A4315

== ENCOUNTER 2020-05-26 17:44 | Inpatient (IN) | payer OTHER ==
[~2020-05-26] VITALS: Ht 182.9 cm; Wt 88.5 kg
[2020-05-26] MEDS ORDERED: ONDANSETRON 4MG ODT PO STA (18:24)
[2020-05-26 18:50] LABS: BASOPHILS % 1.2 % (0.0-2.0); EOSINOPHILS % 4.8 % (0.0-5.0); HEMATOCRIT. 37.1 % (42.0-52.0); HEMOGLOBIN. 12.5 g/dL (14.0-18.0); LYMPHOCYTES % 22.7 % (20.0-50.0); MEAN CORPUSCULAR VOLUME 92.2 fL (80.0-94.0); MEAN PLATELET VOLUME 8.8 fl (7.4-10.4); MONOCYTES % 8.4 % (2.0-8.0); NEUTROPHILS % 62.9 % (40.0-76.0); PLATELET 170 x1000/uL (130-400); RED BLOOD CELL COUNT 4.02 mill/uL (4.7-6.1); RED CELL DISTRIBUTION WIDTH 15.5 % (11.6-14.6)
[2020-05-26 18:55] LABS: CHLORIDE 105 mEq/L (98-107)
[2020-05-26 18:58] LABS: PROTHROMBIN TIME 10.5 sec (9.6-11.0)
[2020-05-26 19:27] LABS: CLARITY URINE CLEAR (CLEAR); COLOR URINE YELLOW (YELLOW); KETONES URINE NEGATIVE (NEGATIVE); LEUKOCYTE ESTERASE URINE 2+ (NEGATIVE); NITRITE URINE NEGATIVE (NEGATIVE); OCCULT BLOOD URINE 2+ (NEGATIVE); PH URINE 7.5 (4.5-8.0); PROTEIN URINE 3+ (NEGATIVE); SPECIFIC GRAVITY URINE 1.012 (1.005-1.030); UROBILINOGEN URINE 0.2 E.U./dL (0.2-1.0)
[2020-05-26] MEDS ORDERED: ONDANSETRON HCL 4MG/2ML INJ IV STA (20:05)
[2020-05-26] MEDS ORDERED: CEFTRIAXONE 1 G PREMIX 50 ML IV ONE (21:45)
[2020-05-26] MEDS ORDERED: NIFEDIPINE XL 30MG TAB PO ONE (22:15)
[2020-05-26] MEDS ORDERED: LISINOPRIL 10MG TABLET PO ONE (22:15)
[2020-05-26] MEDS ORDERED: KETOROLAC 15MG/ML VIAL IV ONE (22:45)
[2020-05-27 11:00] VITALS: BP 183/107
[2020-05-27] MEDS ORDERED: METOCLOPRAMIDE HCL 5MG TABLET PO PRN (11:30)
[2020-05-27] MEDS: CLONIDINE 0.3MG TABLET PO SCH ×2 (11:49→21:00)
[2020-05-27 12:00] VITALS: BP 183/107
[2020-05-27] MEDS ORDERED: DEXTROSE 50% WATER 50ML SYRINGE IV PRN ×2 (12:00→20:45)
[2020-05-27] MEDS: BLOOD SUGAR DIAGNOSTIC STRIP TEST SCH ×3 (12:20→21:00)
[2020-05-27] MEDS: HYDRALAZINE HCL 100MG TABLET PO SCH ×2 (13:22→21:28)
[2020-05-27] MEDS: INSULIN LISPRO 100 UNITS/ML SUBCUT SCH ×3 (13:23→23:24)
[2020-05-27] MEDS ORDERED: CEFTRIAXONE 1 G PREMIX 50 ML IV SCH (14:15)
[2020-05-27 16:00] VITALS: BP 127/82
[2020-05-27] MEDS ORDERED: METFORMIN HCL 500MG TABLET PO SCH (17:50)
[2020-05-27] MEDS ORDERED: FUROSEMIDE 20MG TABLET PO NR (19:30)
[2020-05-27 20:00] VITALS: BP 134/83
[2020-05-27] MEDS: LEVETIRACETAM 500MG TABLET PO SCH (21:00)
[2020-05-27] MEDS: PHENYTOIN SODIUM EXTENDED 100MG CAPSULE PO SCH (21:00)
[2020-05-27] MEDS ORDERED: METOPROLOL TARTRATE 100MG TABLET PO SCH (21:00)
[2020-05-27] MEDS: FAMOTIDINE 20MG TABLET PO SCH (21:27)
[2020-05-27] MEDS: MINOXIDIL 10MG TABLET PO SCH (21:28)
[2020-05-27] MEDS: CEFTRIAXONE 1,000 MG in DEXTROSE 5% WATER 50 ML IV SCH (21:29)
[2020-05-27] MEDS: INSULIN GLARGINE UD 100 UNITS/ML SYR SUBCUT SCH (23:25)
[2020-05-28] VITALS (9 sets, daily range): BP systolic 111–200; BP diastolic 61–112
[2020-05-28] MEDS: HYDRALAZINE HCL 100MG TABLET PO SCH ×3 (06:00→22:00)
[2020-05-28] MEDS: GLIPIZIDE 10MG TABLET PO SCH ×2 (06:21→17:06)
[2020-05-28] MEDS: BLOOD SUGAR DIAGNOSTIC STRIP TEST SCH ×4 (06:21→21:50)
[2020-05-28 08:45] LABS: BASOPHILS % 0.4 % (0.0-2.0); EOSINOPHILS % 3.2 % (0.0-5.0); HEMATOCRIT. 35.1 % (42.0-52.0); HEMOGLOBIN. 11.6 g/dL (14.0-18.0); LYMPHOCYTES % 26.3 % (20.0-50.0); MEAN CORPUSCULAR HEMOGLOBIN 30.4 pg (28.0-32.0); MEAN CORPUSCULAR VOLUME 92.2 fL (80.0-94.0); MEAN PLATELET VOLUME 9.2 fl (7.4-10.4); MONOCYTES % 8.6 % (2.0-8.0); NEUTROPHILS % 61.5 % (40.0-76.0); PLATELET 171 x1000/uL (130-400); RED CELL DISTRIBUTION WIDTH 15.3 % (11.6-14.6)
[2020-05-28] MEDS: FINASTERIDE 5MG TABLET PO SCH (09:00)
[2020-05-28] MEDS ORDERED: OMEPRAZOLE 20MG CAPSULE EXTENDED RELEASE PO SCH (09:00)
[2020-05-28] MEDS: LEVETIRACETAM 500MG TABLET PO SCH ×2 (09:00→22:04)
[2020-05-28] MEDS: AMLODIPINE 10MG TABLET PO SCH (09:35)
[2020-05-28] MEDS: CLONIDINE 0.3MG TABLET PO SCH ×2 (09:36→21:00)
[2020-05-28] MEDS: INSULIN LISPRO 100 UNITS/ML SUBCUT SCH ×4 (09:40→22:03)
[2020-05-28] MEDS: MORPHINE SULFATE 2 MG/ML CPJ (NOT FOR IM USE) IV PRN ×2 (11:01→14:16)
[2020-05-28] MEDS: LOSARTAN POTASSIUM 100 MG TABLET PO SCH (14:48)
[2020-05-28] MEDS: MINOXIDIL 10MG TABLET PO SCH ×2 (14:48→21:56)
[2020-05-28] MEDS: CEFTRIAXONE 1,000 MG in DEXTROSE 5% WATER 50 ML IV SCH (16:59)
[2020-05-28] MEDS: FUROSEMIDE 20MG TABLET PO SCH (17:07)
[2020-05-28] MEDS: METOCLOPRAMIDE HCL 10MG/2ML VIAL IV SCH (18:48)
[2020-05-28] MEDS: PHENYTOIN SODIUM EXTENDED 100MG CAPSULE PO SCH (21:00)
[2020-05-28] MEDS: FAMOTIDINE 20MG TABLET PO SCH (21:56)
[2020-05-28] MEDS: INSULIN GLARGINE UD 100 UNITS/ML SYR SUBCUT SCH (22:03)
[2020-05-29] VITALS: BP 122/72
[2020-05-29] MEDS: METOCLOPRAMIDE HCL 10MG/2ML VIAL IV SCH ×3 (02:43→17:06)
[2020-05-29 04:04] VITALS: BP 125/77
[2020-05-29] MEDS: HYDRALAZINE HCL 100MG TABLET PO SCH ×3 (05:58→22:00)
[2020-05-29] MEDS: MORPHINE SULFATE 2 MG/ML CPJ (NOT FOR IM USE) IV PRN ×3 (05:58→16:57)
[2020-05-29] MEDS: GLIPIZIDE 10MG TABLET PO SCH ×2 (06:00→16:36)
[2020-05-29] MEDS: BLOOD SUGAR DIAGNOSTIC STRIP TEST SCH ×4 (06:39→21:00)
[2020-05-29 08:00] VITALS: BP 146/94
[2020-05-29] MEDS: CLONIDINE 0.3MG TABLET PO SCH ×2 (09:00→21:00)
[2020-05-29] MEDS: FINASTERIDE 5MG TABLET PO SCH (09:26)
[2020-05-29] MEDS: LOSARTAN POTASSIUM 100 MG TABLET PO SCH (09:26)
[2020-05-29] MEDS: FUROSEMIDE 20MG TABLET PO SCH (09:27)
[2020-05-29] MEDS: MINOXIDIL 10MG TABLET PO SCH ×2 (09:27→21:00)
[2020-05-29] MEDS: AMLODIPINE 10MG TABLET PO SCH (09:27)
[2020-05-29] MEDS: LEVETIRACETAM 500MG TABLET PO SCH ×2 (09:27→21:00)
[2020-05-29] MEDS: INSULIN LISPRO 100 UNITS/ML SUBCUT SCH ×4 (09:29→22:27)
[2020-05-29 12:00] VITALS: BP 136/82
[2020-05-29 16:00] VITALS: BP 172/101
[2020-05-29] MEDS: CEFTRIAXONE 1,000 MG in DEXTROSE 5% WATER 50 ML IV SCH (16:35)
[2020-05-29] MEDS: SODIUM CHLORIDE 0.9% 1,000 ML IV SCH (18:33)
[2020-05-29 20:00] VITALS: BP 124/74
[2020-05-29] MEDS: PHENYTOIN SODIUM EXTENDED 100MG CAPSULE PO SCH (21:00)
[2020-05-29] MEDS: LACTULOSE 20G/30ML UDC PO SCH (22:17)
[2020-05-30] VITALS: BP 124/74
[2020-05-30] MEDS: INSULIN LISPRO 100 UNITS/ML SUBCUT SCH ×5 (00:20→23:28)
[2020-05-30] MEDS: INSULIN GLARGINE UD 100 UNITS/ML SYR SUBCUT SCH ×2 (00:24→23:28)
[2020-05-30] MEDS: MORPHINE SULFATE 2 MG/ML CPJ (NOT FOR IM USE) IV PRN ×2 (00:41→09:25)
[2020-05-30] MEDS: ONDANSETRON HCL 4MG/2ML INJ IV PRN (00:42)
[2020-05-30] MEDS: METOCLOPRAMIDE HCL 10MG/2ML VIAL IV SCH ×3 (02:59→17:00)
[2020-05-30 04:00] VITALS: BP 151/91
[2020-05-30] MEDS: LACTULOSE 20G/30ML UDC PO SCH ×3 (06:49→22:00)
[2020-05-30] MEDS: GLIPIZIDE 10MG TABLET PO SCH ×2 (06:50→16:59)
[2020-05-30] MEDS: HYDRALAZINE HCL 100MG TABLET PO SCH ×2 (06:50→13:34)
[2020-05-30 07:13] LABS: BASOPHILS % 0.3 % (0.0-2.0); EOSINOPHILS % 0.3 % (0.0-5.0); HEMATOCRIT. 36.2 % (42.0-52.0); HEMOGLOBIN. 12.3 g/dL (14.0-18.0); LYMPHOCYTES % 17.7 % (20.0-50.0); MEAN CORPUSCULAR HEMOGLOBIN 30.9 pg (28.0-32.0); MEAN CORPUSCULAR VOLUME 91.1 fL (80.0-94.0); MONOCYTES % 8.2 % (2.0-8.0); NEUTROPHILS % 73.5 % (40.0-76.0); PLATELET 198 x1000/uL (130-400); RED BLOOD CELL COUNT 3.97 mill/uL (4.7-6.1); RED CELL DISTRIBUTION WIDTH 15.1 % (11.6-14.6)
[2020-05-30] MEDS: SODIUM CHLORIDE 0.9% 1,000 ML IV SCH (07:57)
[2020-05-30] MEDS: BLOOD SUGAR DIAGNOSTIC STRIP TEST SCH ×4 (07:57→21:00)
[2020-05-30 08:00] VITALS: BP 188/116
[2020-05-30] MEDS: LEVETIRACETAM 500MG TABLET PO SCH ×2 (09:00→21:00)
[2020-05-30] MEDS: CLONIDINE 0.3MG TABLET PO SCH (09:15)
[2020-05-30] MEDS: AMLODIPINE 10MG TABLET PO SCH (09:15)
[2020-05-30] MEDS: FINASTERIDE 5MG TABLET PO SCH (09:15)
[2020-05-30] MEDS: CARVEDILOL 3.125 MG TABLET PO SCH ×2 (09:15→23:22)
[2020-05-30] MEDS: MINOXIDIL 10MG TABLET PO SCH ×2 (09:16→23:21)
[2020-05-30 12:00] VITALS: BP 179/120
[2020-05-30] MEDS ORDERED: NA PHOS,M-B/NA PHOS,DI-BA ENEMA 118ML PR PRN (12:45)
[2020-05-30 16:00] VITALS: BP 142/97
[2020-05-30] MEDS: CEFTRIAXONE 1,000 MG in DEXTROSE 5% WATER 50 ML IV SCH (16:56)
[2020-05-30] MEDS ORDERED: SORBITOL 70% SOLN 30ML PO NR (18:00)
[2020-05-30] MEDS ORDERED: BISACODYL 5MG TABLET PO NR (18:00)
[2020-05-30 20:00] VITALS: BP 127/83
[2020-05-30] MEDS: PHENYTOIN SODIUM EXTENDED 100MG CAPSULE PO SCH (21:00)
[2020-05-30] MEDS: LISINOPRIL 10MG TABLET PO SCH (23:21)
[2020-05-31] VITALS: BP 114/75
[2020-05-31] MEDS: HYDRALAZINE HCL 100MG TABLET PO SCH ×4 (01:07→22:00)
[2020-05-31] MEDS: POTASSIUM CHLORIDE INJ 10 MEQ in SODIUM CHLORIDE 0.45% 1,000 ML IV SCH ×2 (01:08→08:51)
[2020-05-31 04:00] VITALS: BP 71/41
[2020-05-31] MEDS: LACTULOSE 20G/30ML UDC PO SCH (06:00)
[2020-05-31] MEDS: GLIPIZIDE 10MG TABLET PO SCH ×2 (06:20→17:00)
[2020-05-31] MEDS: BLOOD SUGAR DIAGNOSTIC STRIP TEST SCH ×4 (06:20→21:00)
[2020-05-31 06:47] LABS: BASOPHILS % 0.6 % (0.0-2.0); EOSINOPHILS % 0.5 % (0.0-5.0); HEMOGLOBIN. 12.1 g/dL (14.0-18.0); LYMPHOCYTES % 28.4 % (20.0-50.0); MEAN CORPUSCULAR HEMOGLOBIN 30.9 pg (28.0-32.0); MEAN CORPUSCULAR VOLUME 91.6 fL (80.0-94.0); MONOCYTES % 8.6 % (2.0-8.0); NEUTROPHILS % 61.9 % (40.0-76.0); RED BLOOD CELL COUNT 3.93 mill/uL (4.7-6.1); RED CELL DISTRIBUTION WIDTH 15.1 % (11.6-14.6)
[2020-05-31] MEDS: ONDANSETRON HCL 4MG/2ML INJ IV PRN ×2 (07:53→14:05)
[2020-05-31] MEDS: MORPHINE SULFATE 2 MG/ML CPJ (NOT FOR IM USE) IV PRN (07:54)
[2020-05-31] MEDS: INSULIN LISPRO 100 UNITS/ML SUBCUT SCH ×4 (07:59→23:59)
[2020-05-31 08:00] VITALS: BP 88/41
[2020-05-31 08:03] LABS: PLATELET ESTIMATE NORMAL
[2020-05-31 08:04] LABS: MEAN PLATELET VOLUME 9.2 fl (7.4-10.4); PLATELET 205 x1000/uL (130-400)
[2020-05-31] MEDS: CARVEDILOL 3.125 MG TABLET PO SCH ×2 (08:39→21:00)
[2020-05-31] MEDS: MINOXIDIL 10MG TABLET PO SCH ×2 (08:40→21:00)
[2020-05-31] MEDS: AMLODIPINE 10MG TABLET PO SCH (08:41)
[2020-05-31] MEDS: LISINOPRIL 10MG TABLET PO SCH ×2 (08:42→21:00)
[2020-05-31] MEDS: CLONIDINE HCL 0.3MG/24HR PATCH TD SCH (08:42)
[2020-05-31] MEDS: FINASTERIDE 5MG TABLET PO SCH (08:48)
[2020-05-31] MEDS: LEVETIRACETAM 500MG TABLET PO SCH ×2 (08:48→21:00)
[2020-05-31 12:00] VITALS: BP 116/63
[2020-05-31] MEDS ORDERED: SIMETHICONE 80MG TABLET CHEW PO PRN ×2 (12:45→13:15)
[2020-05-31] MEDS: METOCLOPRAMIDE HCL 10MG/2ML VIAL IV SCH ×3 (13:44→23:50)
[2020-05-31] MEDS: CEFTRIAXONE 1,000 MG in DEXTROSE 5% WATER 50 ML IV SCH (17:00)
[2020-05-31 20:00] VITALS: BP 103/59
[2020-05-31] MEDS: PHENYTOIN SODIUM EXTENDED 100MG CAPSULE PO SCH (21:00)
[2020-05-31] MEDS: INSULIN GLARGINE UD 100 UNITS/ML SYR SUBCUT SCH (23:59)
[2020-06-01] VITALS: BP 127/64
[2020-06-01] MEDS: POTASSIUM CHLORIDE INJ 10 MEQ in SODIUM CHLORIDE 0.45% 1,000 ML IV SCH (01:33)
[2020-06-01] MEDS: ONDANSETRON HCL 4MG/2ML INJ IV PRN (01:38)
[2020-06-01 04:00] VITALS: BP 113/56
[2020-06-01] MEDS: METOCLOPRAMIDE HCL 10MG/2ML VIAL IV SCH ×3 (06:45→18:16)
[2020-06-01] MEDS: GLIPIZIDE 10MG TABLET PO SCH ×2 (06:45→18:16)
[2020-06-01] MEDS: HYDRALAZINE HCL 100MG TABLET PO SCH ×3 (06:48→22:47)
[2020-06-01] MEDS: BLOOD SUGAR DIAGNOSTIC STRIP TEST SCH ×4 (07:20→20:58)
[2020-06-01] MEDS: INSULIN LISPRO 100 UNITS/ML SUBCUT SCH ×4 (07:50→22:56)
[2020-06-01 08:00] VITALS: BP 118/72
[2020-06-01 08:44] LABS: BASOPHILS % 0.7 % (0.0-2.0); EOSINOPHILS % 0.3 % (0.0-5.0); HEMATOCRIT. 36.7 % (42.0-52.0); HEMOGLOBIN. 12.3 g/dL (14.0-18.0); LYMPHOCYTES % 22.3 % (20.0-50.0); MEAN CORPUSCULAR HEMOGLOBIN 30.6 pg (28.0-32.0); MEAN CORPUSCULAR VOLUME 91.3 fL (80.0-94.0); MONOCYTES % 6.2 % (2.0-8.0); NEUTROPHILS % 70.5 % (40.0-76.0); PLATELET 209 x1000/uL (130-400); RED BLOOD CELL COUNT 4.02 mill/uL (4.7-6.1); RED CELL DISTRIBUTION WIDTH 14.8 % (11.6-14.6)
[2020-06-01] MEDS: LEVETIRACETAM 500MG TABLET PO SCH ×2 (09:00→20:56)
[2020-06-01] MEDS: FINASTERIDE 5MG TABLET PO SCH (09:12)
[2020-06-01] MEDS: AMLODIPINE 10MG TABLET PO SCH ×2 (09:12→13:35)
[2020-06-01] MEDS: CARVEDILOL 3.125 MG TABLET PO SCH ×2 (09:13→22:57)
[2020-06-01] MEDS: LISINOPRIL 10MG TABLET PO SCH ×2 (09:15→22:51)
[2020-06-01] MEDS: CEFTRIAXONE 1,000 MG in DEXTROSE 5% WATER 50 ML IV SCH (18:16)
[2020-06-01] MEDS: PHENYTOIN SODIUM EXTENDED 100MG CAPSULE PO SCH (20:56)
[2020-06-01] MEDS: SODIUM CHL 0.45% + KCL 20MEQ/L 1,000 ML IV SCH (22:34)
[2020-06-01] MEDS: INSULIN GLARGINE UD 100 UNITS/ML SYR SUBCUT SCH (22:55)
[2020-06-01] MEDS: MORPHINE SULFATE 2 MG/ML CPJ (NOT FOR IM USE) IV PRN (22:59)
[2020-06-02] MEDS: METOCLOPRAMIDE HCL 10MG/2ML VIAL IV SCH ×2 (06:00)
[2020-06-02] MEDS: HYDRALAZINE HCL 100MG TABLET PO SCH ×3 (06:42→21:40)
[2020-06-02] MEDS: GLIPIZIDE 10MG TABLET PO SCH ×2 (06:42→17:19)
[2020-06-02 06:46] LABS: BASOPHILS % 1.1 % (0.0-2.0); EOSINOPHILS % 0.6 % (0.0-5.0); HEMATOCRIT. 40.1 % (42.0-52.0); HEMOGLOBIN. 13.1 g/dL (14.0-18.0); LYMPHOCYTES % 23.4 % (20.0-50.0); MEAN CORPUSCULAR HEMOGLOBIN 29.9 pg (28.0-32.0); MEAN CORPUSCULAR VOLUME 91.7 fL (80.0-94.0); MEAN PLATELET VOLUME 8.7 fl (7.4-10.4); MONOCYTES % 7.3 % (2.0-8.0); NEUTROPHILS % 67.6 % (40.0-76.0); PLATELET 223 x1000/uL (130-400); RED BLOOD CELL COUNT 4.37 mill/uL (4.7-6.1)
[2020-06-02] MEDS: INSULIN LISPRO 100 UNITS/ML SUBCUT SCH ×4 (07:50→21:00)
[2020-06-02] MEDS: BLOOD SUGAR DIAGNOSTIC STRIP TEST SCH ×4 (07:54→21:18)
[2020-06-02 08:00] VITALS: BP 177/99
[2020-06-02] MEDS: LEVETIRACETAM 500MG TABLET PO SCH ×2 (09:00→21:39)
[2020-06-02] MEDS: ONDANSETRON HCL 4MG/2ML INJ IV PRN (09:07)
[2020-06-02] MEDS: CARVEDILOL 3.125 MG TABLET PO SCH ×2 (09:08→21:39)
[2020-06-02] MEDS: LISINOPRIL 10MG TABLET PO SCH ×2 (09:08→21:39)
[2020-06-02] MEDS: AMLODIPINE 10MG TABLET PO SCH (09:08)
[2020-06-02] MEDS: FINASTERIDE 5MG TABLET PO SCH (09:08)
[2020-06-02] MEDS: MORPHINE SULFATE 2 MG/ML CPJ (NOT FOR IM USE) IV PRN (09:09)
[2020-06-02] MEDS: SODIUM CHL 0.45% + KCL 20MEQ/L 1,000 ML IV SCH ×2 (09:09→17:19)
[2020-06-02 12:00] VITALS: BP 116/110
[2020-06-02] MEDS ORDERED: ONDANSETRON HCL 4MG/2ML INJ IV PRN (12:15)
[2020-06-02] MEDS: ONDANSETRON INJ 8 MG in DEXTROSE 5% WATER 50 ML IV PRN (13:57)
[2020-06-02] MEDS: HYDROCODONE/ACETAMINOPHEN 5/325MG TABLET PO PRN ×2 (14:41→21:38)
[2020-06-02 16:00] VITALS: BP 113/77
[2020-06-02] MEDS ORDERED: SORBITOL 70% SOLN 30ML PO NR (16:30)
[2020-06-02 20:00] VITALS: BP 150/93
[2020-06-02] MEDS: PHENYTOIN SODIUM EXTENDED 100MG CAPSULE PO SCH (21:39)
[2020-06-02] MEDS: INSULIN GLARGINE UD 100 UNITS/ML SYR SUBCUT SCH (22:49)
[2020-06-03] VITALS: BP 167/108
[2020-06-03] MEDS ORDERED: SORBITOL 70% SOLN 30ML PO NR (02:00)
[2020-06-03] MEDS: SODIUM CHL 0.45% + KCL 20MEQ/L 1,000 ML IV SCH ×3 (03:35→22:57)
[2020-06-03 04:00] VITALS: BP 168/107
[2020-06-03] MEDS: ONDANSETRON INJ 8 MG in DEXTROSE 5% WATER 50 ML IV PRN ×3 (04:28→13:36)
[2020-06-03] MEDS: HYDROCODONE/ACETAMINOPHEN 5/325MG TABLET PO PRN ×2 (05:14→13:37)
[2020-06-03] MEDS: HYDRALAZINE HCL 100MG TABLET PO SCH ×3 (05:14→21:45)
[2020-06-03] MEDS: LEVETIRACETAM 500MG TABLET PO SCH ×3 (06:35→21:46)
[2020-06-03] MEDS: PHENYTOIN SODIUM EXTENDED 100MG CAPSULE PO SCH ×2 (06:35→21:44)
[2020-06-03] MEDS: BLOOD SUGAR DIAGNOSTIC STRIP TEST SCH ×4 (06:50→20:30)
[2020-06-03] MEDS: LISINOPRIL 10MG TABLET PO SCH (09:04)
[2020-06-03] MEDS: FINASTERIDE 5MG TABLET PO SCH (09:05)
[2020-06-03] MEDS: CARVEDILOL 3.125 MG TABLET PO SCH ×2 (09:05→21:44)
[2020-06-03] MEDS: AMLODIPINE 10MG TABLET PO SCH (09:05)
[2020-06-03] MEDS: INSULIN LISPRO 100 UNITS/ML SUBCUT SCH ×4 (10:42→21:00)
[2020-06-03 16:00] VITALS: BP 160/92
[2020-06-03] MEDS: GLIPIZIDE 10MG TABLET PO SCH (17:40)
[2020-06-03 20:00] VITALS: BP 132/88
[2020-06-03] MEDS: INSULIN GLARGINE UD 100 UNITS/ML SYR SUBCUT SCH (21:43)
[2020-06-03] MEDS: LISINOPRIL 5MG TABLET PO SCH (21:44)
[2020-06-04] VITALS: BP 139/87
[2020-06-04 04:00] VITALS: BP 164/94
[2020-06-04] MEDS: HYDRALAZINE HCL 100MG TABLET PO SCH ×3 (06:13→21:34)
[2020-06-04] MEDS: BLOOD SUGAR DIAGNOSTIC STRIP TEST SCH ×4 (06:14→21:08)
[2020-06-04] MEDS: INSULIN LISPRO 100 UNITS/ML SUBCUT SCH ×4 (07:37→21:00)
[2020-06-04 08:00] VITALS: BP 155/99
[2020-06-04] MEDS: GLIPIZIDE 10MG TABLET PO SCH ×2 (08:17→17:20)
[2020-06-04] MEDS: AMLODIPINE 10MG TABLET PO SCH (08:17)
[2020-06-04] MEDS: LISINOPRIL 5MG TABLET PO SCH ×2 (08:18→21:35)
[2020-06-04] MEDS: CARVEDILOL 3.125 MG TABLET PO SCH (08:18)
[2020-06-04] MEDS: FINASTERIDE 5MG TABLET PO SCH (08:18)
[2020-06-04] MEDS: SODIUM CHL 0.45% + KCL 20MEQ/L 1,000 ML IV SCH ×2 (08:24→19:00)
[2020-06-04 12:00] VITALS: BP 162/97
[2020-06-04 16:00] VITALS: BP 157/96
[2020-06-04 20:00] VITALS: BP_SYST 140; BP_SYST 151; BP_DIAS 67; BP_DIAS 78
[2020-06-04] MEDS: LEVETIRACETAM 500MG TABLET PO SCH (21:00)
[2020-06-04] MEDS: CARVEDILOL 6.25 MG TABLET PO SCH (21:35)
[2020-06-04] MEDS: INSULIN GLARGINE UD 100 UNITS/ML SYR SUBCUT SCH (21:38)
[2020-06-05] VITALS: BP 166/95
[2020-06-05] MEDS: HYDROCODONE/ACETAMINOPHEN 5/325MG TABLET PO PRN ×2 (00:51→05:32)
[2020-06-05 04:00] VITALS: BP 156/94
[2020-06-05] MEDS: SODIUM CHL 0.45% + KCL 20MEQ/L 1,000 ML IV SCH ×2 (04:40→05:05)
[2020-06-05] MEDS: HYDRALAZINE HCL 100MG TABLET PO SCH ×3 (05:26→21:58)
[2020-06-05] MEDS: BLOOD SUGAR DIAGNOSTIC STRIP TEST SCH ×4 (06:57→21:58)
[2020-06-05] MEDS: INSULIN LISPRO 100 UNITS/ML SUBCUT SCH ×4 (07:50→21:55)
[2020-06-05 08:00] VITALS: BP 162/99
[2020-06-05] MEDS: LEVETIRACETAM 500MG TABLET PO SCH ×3 (09:00→21:00)
[2020-06-05] MEDS: FINASTERIDE 5MG TABLET PO SCH (09:12)
[2020-06-05] MEDS: GLIPIZIDE 10MG TABLET PO SCH ×2 (09:12→18:34)
[2020-06-05] MEDS: AMLODIPINE 10MG TABLET PO SCH (09:12)
[2020-06-05] MEDS: CARVEDILOL 6.25 MG TABLET PO SCH ×2 (09:13→21:56)
[2020-06-05] MEDS: LISINOPRIL 5MG TABLET PO SCH ×2 (09:13→21:57)
[2020-06-05 12:00] VITALS: BP 114/83
[2020-06-05 16:00] VITALS: BP 149/102
[2020-06-05 20:00] VITALS: BP 143/89
[2020-06-05] MEDS: PHENYTOIN SODIUM EXTENDED 100MG CAPSULE PO SCH (21:00)
[2020-06-05] MEDS: INSULIN GLARGINE UD 100 UNITS/ML SYR SUBCUT SCH (21:54)
[2020-06-06] VITALS: BP 124/75
[2020-06-06] MEDS: HYDROCODONE/ACETAMINOPHEN 5/325MG TABLET PO PRN ×2 (03:32→08:57)
[2020-06-06 04:00] VITALS: BP 140/91
[2020-06-06] MEDS: SODIUM CHL 0.45% + KCL 20MEQ/L 1,000 ML IV SCH ×2 (04:40→22:11)
[2020-06-06] MEDS: BLOOD SUGAR DIAGNOSTIC STRIP TEST SCH ×4 (06:10→21:16)
[2020-06-06] MEDS: HYDRALAZINE HCL 100MG TABLET PO SCH ×4 (06:48→21:16)
[2020-06-06] MEDS: INSULIN LISPRO 100 UNITS/ML SUBCUT SCH ×4 (07:50→21:19)
[2020-06-06] MEDS: CARVEDILOL 6.25 MG TABLET PO SCH ×2 (08:54→21:15)
[2020-06-06] MEDS: GLIPIZIDE 10MG TABLET PO SCH ×2 (08:55→18:26)
[2020-06-06] MEDS: AMLODIPINE 10MG TABLET PO SCH (08:55)
[2020-06-06] MEDS: FINASTERIDE 5MG TABLET PO SCH (08:55)
[2020-06-06] MEDS: LISINOPRIL 5MG TABLET PO SCH ×2 (08:56→21:16)
[2020-06-06] MEDS: LEVETIRACETAM 500MG TABLET PO SCH ×2 (08:59→21:00)
[2020-06-06] MEDS ORDERED: CEFTRIAXONE 1 G PREMIX 50 ML IV SCH (14:30)
[2020-06-06 16:17] LABS: BASOPHILS % 0.5 % (0.0-2.0); EOSINOPHILS % 2.3 % (0.0-5.0); HEMATOCRIT. 37.9 % (42.0-52.0); HEMOGLOBIN. 12.4 g/dL (14.0-18.0); LYMPHOCYTES % 39.3 % (20.0-50.0); MEAN CORPUSCULAR HEMOGLOBIN 30.1 pg (28.0-32.0); MEAN CORPUSCULAR VOLUME 92.1 fL (80.0-94.0); MEAN PLATELET VOLUME 9.6 fl (7.4-10.4); MONOCYTES % 7.1 % (2.0-8.0); NEUTROPHILS % 50.8 % (40.0-76.0); PLATELET 198 x1000/uL (130-400); RED BLOOD CELL COUNT 4.12 mill/uL (4.7-6.1); RED CELL DISTRIBUTION WIDTH 14.6 % (11.6-14.6)
[2020-06-06] MEDS: CEFTRIAXONE 1,000 MG in DEXTROSE 5% WATER 50 ML IV SCH (18:26)
[2020-06-06 20:00] VITALS: BP 124/75
[2020-06-06] MEDS: PHENYTOIN SODIUM EXTENDED 100MG CAPSULE PO SCH (21:00)
[2020-06-06] MEDS: INSULIN GLARGINE UD 100 UNITS/ML SYR SUBCUT SCH (22:11)
[2020-06-07] VITALS: BP 121/72
[2020-06-07] MEDS: HYDROCODONE/ACETAMINOPHEN 5/325MG TABLET PO PRN ×2 (00:57→06:07)
[2020-06-07 04:00] VITALS: BP 153/94
[2020-06-07] MEDS: BLOOD SUGAR DIAGNOSTIC STRIP TEST SCH ×4 (06:06→21:51)
[2020-06-07] MEDS: HYDRALAZINE HCL 100MG TABLET PO SCH ×3 (06:07→22:19)
[2020-06-07 08:00] VITALS: BP 136/84
[2020-06-07] MEDS: LEVETIRACETAM 500MG TABLET PO SCH ×3 (09:00→22:18)
[2020-06-07] MEDS: LISINOPRIL 5MG TABLET PO SCH ×2 (09:18→22:18)
[2020-06-07] MEDS: FINASTERIDE 5MG TABLET PO SCH (09:18)
[2020-06-07] MEDS: GLIPIZIDE 10MG TABLET PO SCH ×2 (09:19→17:17)
[2020-06-07] MEDS: AMLODIPINE 10MG TABLET PO SCH (09:19)
[2020-06-07] MEDS: CLONIDINE HCL 0.3MG/24HR PATCH TD SCH (09:19)
[2020-06-07] MEDS: INSULIN LISPRO 100 UNITS/ML SUBCUT SCH ×4 (09:26→22:22)
[2020-06-07 12:00] VITALS: BP 135/88
[2020-06-07] MEDS ORDERED: MY80 PO (14:29)
[2020-06-07] MEDS ORDERED: PHEN100C4 PO (14:29)
[2020-06-07] MEDS ORDERED: CLON1PAT12 TD (14:29)
[2020-06-07] MEDS ORDERED: LANTUSUD SUBCUT (14:29)
[2020-06-07] MEDS ORDERED: GLIP10TA10 PO (14:29)
[2020-06-07] MEDS ORDERED: ONDA4TAB11 PO (14:29)
[2020-06-07] MEDS ORDERED: KEPP500 PO (14:29)
[2020-06-07] MEDS ORDERED: HYDR100T26 PO (14:29)
[2020-06-07] MEDS ORDERED: FINA5TAB11 PO (14:29)
[2020-06-07] MEDS ORDERED: AMLO10TA80 PO (14:29)
[2020-06-07] MEDS ORDERED: LISI-186 PO (14:29)
[2020-06-07] MEDS ORDERED: PANT40TA51 MT (14:30)
[2020-06-07] MEDS: SODIUM CHL 0.45% + KCL 20MEQ/L 1,000 ML IV SCH (14:56)
[2020-06-07] MEDS ORDERED: DOCUSATE SODIUM 250MG CAPSULE PO PRN (15:30)
[2020-06-07 16:00] VITALS: BP 104/77
[2020-06-07] MEDS: CEFTRIAXONE 1,000 MG in DEXTROSE 5% WATER 50 ML IV SCH (17:18)
[2020-06-07 20:00] VITALS: BP 144/86
[2020-06-07] MEDS: PHENYTOIN SODIUM EXTENDED 100MG CAPSULE PO SCH (22:18)
[2020-06-07] MEDS: INSULIN GLARGINE UD 100 UNITS/ML SYR SUBCUT SCH (22:42)
[2020-06-08] VITALS (7 sets, daily range): BP systolic 88–147; BP diastolic 51–87
[2020-06-08] MEDS: TRAMADOL 50MG TABLET PO PRN ×3 (00:20→21:33)
[2020-06-08] MEDS: HYDRALAZINE HCL 100MG TABLET PO SCH ×3 (06:45→22:00)
[2020-06-08] MEDS: BLOOD SUGAR DIAGNOSTIC STRIP TEST SCH ×4 (07:20→21:33)
[2020-06-08] MEDS: FINASTERIDE 5MG TABLET PO SCH (08:47)
[2020-06-08] MEDS: LISINOPRIL 5MG TABLET PO SCH ×2 (08:48→21:00)
[2020-06-08] MEDS: GLIPIZIDE 10MG TABLET PO SCH ×2 (08:48→17:44)
[2020-06-08] MEDS: AMLODIPINE 10MG TABLET PO SCH (08:48)
[2020-06-08] MEDS: LEVETIRACETAM 500MG TABLET PO SCH ×3 (09:00→21:03)
[2020-06-08] MEDS: INSULIN LISPRO 100 UNITS/ML SUBCUT SCH ×4 (09:04→21:31)
[2020-06-08] MEDS: CEFTRIAXONE 1,000 MG in DEXTROSE 5% WATER 50 ML IV SCH (15:00)
[2020-06-08] MEDS: PHENYTOIN SODIUM EXTENDED 100MG CAPSULE PO SCH ×2 (21:00→21:02)
[2020-06-08] MEDS: INSULIN GLARGINE UD 100 UNITS/ML SYR SUBCUT SCH (23:00)
[2020-06-09] VITALS: BP 136/83
[2020-06-09 04:00] VITALS: BP 129/77
[2020-06-09] MEDS: HYDRALAZINE HCL 100MG TABLET PO SCH (06:00)
[2020-06-09] MEDS: GLIPIZIDE 10MG TABLET PO SCH (06:22)
[2020-06-09] MEDS: TRAMADOL 50MG TABLET PO PRN (06:22)
[2020-06-09] MEDS: BLOOD SUGAR DIAGNOSTIC STRIP TEST SCH (06:40)
[2020-06-09] MEDS: INSULIN LISPRO 100 UNITS/ML SUBCUT SCH (07:50)
[2020-06-09 08:00] VITALS: BP 167/104
== END 2020-06-09 08:41 | disposition home or self-care (01) | DRG 48 ==
LOC: ER 17:44 → 6EST 22:33 → ENRESERV 05-27 10:33
PROVIDERS: ADMIT Internal Medicine; ATTEND Internal Medicine
DX: E11.43 Type 2 diabetes mellitus with diabetic autonomic (poly)neuropathy (principal); N39.0 Urinary tract infection, site not specified; E46 Unspecified protein-calorie malnutrition; N17.9 Acute kidney failure, unspecified; E11.22 Type 2 diabetes mellitus with diabetic chronic kidney disease; N18.9 Chronic kidney disease, unspecified; I16.0 Hypertensive urgency; I12.9 Hypertensive chronic kidney disease with stage 1 through stage 4 chronic kidney disease, or unspecified chronic kidney disease; E87.70 Fluid overload, unspecified; K31.84 Gastroparesis; D64.9 Anemia, unspecified; T40.605A Adverse effect of unspecified narcotics, initial encounter; N40.1 Benign prostatic hyperplasia with lower urinary tract symptoms; F17.200 Nicotine dependence, unspecified, uncomplicated; B19.10 Unspecified viral hepatitis B without hepatic coma; M50.80 Other cervical disc disorders, unspecified cervical region; M51.86 Other intervertebral disc disorders, lumbar region; J18.9 Pneumonia, unspecified organism; K59.03 Drug induced constipation; Z20.822 Contact with and (suspected) exposure to COVID-19; K92.0 Hematemesis; Z87.440 Personal history of urinary (tract) infections; Z79.4 Long term (current) use of insulin; Z79.899 Other long term (current) drug therapy; Z59.0 Homelessness; Z68.26 Body mass index [BMI] 26.0-26.9, adult; Y92.89 Other specified places as the place of occurrence of the external cause
CPT/HCPCS: 36415; 71046; 72141; 72148; 73521; 73560; 74018; 74176; 76770; 80048; 80053; 81003; 82962; 83036; 83880; 85025; 93005; 97161; 99285; J0696; J1815; J1885; J2270; J2405; J2765; J3480; J7030; J7040; J7060; J8597; Q0162; U0003; A4315

== ENCOUNTER 2020-10-24 20:18 | Inpatient (IN) | payer MEDICAID, OTHER ==
[~2020-10-24] VITALS: Ht 188 cm; Wt 82.2 kg
[~2020-10-24 20:18] MED LIST changes: +CLON1PAT12 TD; +GLIP10TA10 PO; +KEPP500 PO; +LISI-186 PO; +ONDA4TAB11 PO; +PANT40TA51 MT; +PHEN100C4 PO; +SIME80TA16 PO
[2020-10-24] MEDS ORDERED: SODIUM CHLORIDE 0.9% 1,000 ML IV ONE (22:00)
[2020-10-24] MEDS ORDERED: ONDANSETRON HCL 4MG/2ML INJ IV NR (22:00)
[2020-10-24 22:51] LABS: BASOPHILS % 0.5 % (0.0-2.0); EOSINOPHILS % 0.1 % (0.0-5.0); HEMATOCRIT. 35.7 % (42.0-52.0); HEMOGLOBIN. 11.9 g/dL (14.0-18.0); LYMPHOCYTES % 19.5 % (20.0-50.0); MEAN CORPUSCULAR HEMOGLOBIN 30.2 pg (28.0-32.0); MEAN CORPUSCULAR VOLUME 90.7 fL (80.0-94.0); MEAN PLATELET VOLUME 9.2 fl (7.4-10.4); MONOCYTES % 9.5 % (2.0-8.0); NEUTROPHILS % 70.4 % (40.0-76.0); PLATELET 279 x1000/uL (130-400); RED BLOOD CELL COUNT 3.94 mill/uL (4.7-6.1)
[2020-10-24 22:58] LABS: CHLORIDE 92 mEq/L (98-107)
[2020-10-24 23:01] LABS: INR 1.1; PROTHROMBIN TIME 11.4 sec (9.6-11.0)
[2020-10-24] MEDS ORDERED: CLONIDINE 0.2MG TABLET PO SCH (23:45)
[2020-10-24] MEDS ORDERED: MORPHINE SULFATE 4 MG/ML CPJ (NOT FOR IM USE) IV SCH (23:45)
[2020-10-25] MEDS ORDERED: INSULIN REGULAR (HUMULIN R) 300UNITS/3ML VIAL IV SCH (00:15)
[2020-10-25] MEDS ORDERED: INSULIN REGULAR (HUMULIN R) 300UNITS/3ML VIAL SUBCUT SCH (05:30)
[2020-10-25] MEDS ORDERED: CLONIDINE 0.1MG TABLET PO PRN (07:30)
[2020-10-25] MEDS ORDERED: LORAZEPAM 0.5MG TABLET PO PRN (07:30)
[2020-10-25] MEDS ORDERED: ACETAMINOPHEN 325MG TABLET PO PRN ×2 (07:30)
[2020-10-25] MEDS ORDERED: IPRATROPIUM/ALBUTEROL 0.5-3(2.5)MG/3ML NEB HHN PRN (07:30)
[2020-10-25] MEDS ORDERED: ONDANSETRON HCL 4MG/2ML INJ IV PRN (07:30)
[2020-10-25] MEDS ORDERED: DOCUSATE SODIUM 100MG CAPSULE PO PRN (07:30)
[2020-10-25] MEDS ORDERED: DEXTROSE 50% WATER 50ML SYRINGE IV PRN (08:30)
[2020-10-25] MEDS: INSULIN LISPRO 100 UNITS/ML SUBCUT SCH ×4 (08:43→21:56)
[2020-10-25 10:15] VITALS: BP 92/53
[2020-10-25 11:00] VITALS: BP 92/53
[2020-10-25 12:00] VITALS: BP 109/63
[2020-10-25] MEDS: BLOOD SUGAR DIAGNOSTIC STRIP TEST SCH ×3 (12:10→21:55)
[2020-10-25 16:30] VITALS: BP 113/79
[2020-10-25] MEDS: SODIUM CHLORIDE 0.9% 1,000 ML IV SCH (17:17)
[2020-10-25] MEDS: METOCLOPRAMIDE HCL 10MG/2ML VIAL IV SCH ×2 (17:17→23:22)
[2020-10-25 20:00] VITALS: BP 91/51
[2020-10-25] MEDS: METOPROLOL TARTRATE 100MG TABLET PO SCH (21:00)
[2020-10-25] MEDS ORDERED: PHENYTOIN SODIUM EXTENDED 100MG CAPSULE PO SCH (21:00)
[2020-10-25] MEDS: HYDRALAZINE HCL 50MG TABLET PO SCH (21:00)
[2020-10-25] MEDS: CLONIDINE 0.3MG TABLET PO SCH (21:00)
[2020-10-25] MEDS: MINOXIDIL 10MG TABLET PO SCH (21:00)
[2020-10-25] MEDS: LEVETIRACETAM 500MG TABLET PO SCH (21:53)
[2020-10-25] MEDS: PHENYTOIN SODIUM EXTENDED 100MG CAPSULE PO SCH (21:53)
[2020-10-25] MEDS: INSULIN GLARGINE UD 100 UNITS/ML SYR SUBCUT SCH (21:57)
[2020-10-26] VITALS: BP 108/61
[2020-10-26] MEDS: SODIUM CHLORIDE 0.9% 1,000 ML IV SCH ×2 (02:51→12:41)
[2020-10-26 04:00] VITALS: BP 105/72
[2020-10-26] MEDS: METOCLOPRAMIDE HCL 10MG/2ML VIAL IV SCH ×3 (05:41→17:39)
[2020-10-26 05:53] LABS: BASOPHILS % 0.3 % (0.0-2.0); EOSINOPHILS % 1.6 % (0.0-5.0); HEMATOCRIT. 32.7 % (42.0-52.0); HEMOGLOBIN. 10.8 g/dL (14.0-18.0); LYMPHOCYTES % 31.3 % (20.0-50.0); MEAN CORPUSCULAR HEMOGLOBIN 30.1 pg (28.0-32.0); MEAN CORPUSCULAR VOLUME 91.2 fL (80.0-94.0); MEAN PLATELET VOLUME 9.2 fl (7.4-10.4); MONOCYTES % 10.6 % (2.0-8.0); NEUTROPHILS % 56.2 % (40.0-76.0); PLATELET 198 x1000/uL (130-400); RED BLOOD CELL COUNT 3.58 mill/uL (4.7-6.1); RED CELL DISTRIBUTION WIDTH 15.3 % (11.6-14.6)
[2020-10-26] MEDS: BLOOD SUGAR DIAGNOSTIC STRIP TEST SCH ×4 (06:21→21:00)
[2020-10-26] MEDS: INSULIN LISPRO 100 UNITS/ML SUBCUT SCH ×4 (06:21→22:01)
[2020-10-26 08:01] VITALS: BP 111/73
[2020-10-26] MEDS: CLONIDINE 0.3MG TABLET PO SCH ×2 (09:00→21:56)
[2020-10-26] MEDS: METOPROLOL TARTRATE 100MG TABLET PO SCH ×2 (09:00→21:59)
[2020-10-26] MEDS: MINOXIDIL 10MG TABLET PO SCH ×2 (09:00→21:58)
[2020-10-26] MEDS: AMLODIPINE 10MG TABLET PO SCH (09:00)
[2020-10-26] MEDS: HYDRALAZINE HCL 50MG TABLET PO SCH ×2 (09:00→21:55)
[2020-10-26] MEDS: LEVETIRACETAM 500MG TABLET PO SCH ×2 (09:37→21:56)
[2020-10-26] MEDS: PANTOPRAZOLE 40MG DR TABLET PO SCH (09:37)
[2020-10-26] MEDS: FINASTERIDE 5MG TABLET PO SCH (09:38)
[2020-10-26] MEDS: INSULIN GLARGINE UD 100 UNITS/ML SYR SUBCUT SCH ×2 (09:45→22:30)
[2020-10-26] MEDS: HYDROCODONE/ACETAMINOPHEN 5/325MG TABLET PO PRN ×2 (10:17→21:55)
[2020-10-26 12:29] VITALS: BP 123/88
[2020-10-26 20:00] VITALS: BP 116/74
[2020-10-26] MEDS: PHENYTOIN SODIUM EXTENDED 100MG CAPSULE PO SCH (21:57)
[2020-10-27] VITALS: BP 93/52
[2020-10-27] MEDS: SODIUM CHLORIDE 0.9% 1,000 ML IV SCH ×2 (02:43→12:40)
[2020-10-27] MEDS: METOCLOPRAMIDE HCL 10MG/2ML VIAL IV SCH ×4 (02:45→17:25)
[2020-10-27 04:00] VITALS: BP_SYST 121; BP_SYST 128; BP_DIAS 53; BP_DIAS 82
[2020-10-27] MEDS: BLOOD SUGAR DIAGNOSTIC STRIP TEST SCH ×4 (06:36→21:45)
[2020-10-27] MEDS: INSULIN LISPRO 100 UNITS/ML SUBCUT SCH ×4 (06:45→22:16)
[2020-10-27 08:42] VITALS: BP 151/98
[2020-10-27] MEDS: AMLODIPINE 10MG TABLET PO SCH (08:54)
[2020-10-27] MEDS: CLONIDINE 0.3MG TABLET PO SCH ×2 (08:54→21:00)
[2020-10-27] MEDS: HYDRALAZINE HCL 50MG TABLET PO SCH ×2 (08:54→21:00)
[2020-10-27] MEDS: MINOXIDIL 10MG TABLET PO SCH ×2 (08:54→21:00)
[2020-10-27] MEDS: PANTOPRAZOLE 40MG DR TABLET PO SCH (08:54)
[2020-10-27] MEDS: LEVETIRACETAM 500MG TABLET PO SCH ×3 (08:54→22:12)
[2020-10-27] MEDS: METOPROLOL TARTRATE 100MG TABLET PO SCH ×2 (08:55→21:00)
[2020-10-27] MEDS: FINASTERIDE 5MG TABLET PO SCH (08:55)
[2020-10-27] MEDS: HYDROCODONE/ACETAMINOPHEN 5/325MG TABLET PO PRN ×2 (10:06→20:11)
[2020-10-27] MEDS: INSULIN GLARGINE UD 100 UNITS/ML SYR SUBCUT SCH ×2 (10:07→22:17)
[2020-10-27 12:05] VITALS: BP 90/56
[2020-10-27 16:00] VITALS: BP 100/59
[2020-10-27 20:00] VITALS: BP 100/57
[2020-10-27] MEDS: PHENYTOIN SODIUM EXTENDED 100MG CAPSULE PO SCH (22:12)
[2020-10-28] VITALS: BP 106/67
[2020-10-28] MEDS: SODIUM CHLORIDE 0.9% 1,000 ML IV SCH ×2 (01:31→09:05)
[2020-10-28] MEDS: METOCLOPRAMIDE HCL 10MG/2ML VIAL IV SCH ×4 (01:31→18:22)
[2020-10-28 04:00] VITALS: BP 134/79
[2020-10-28] MEDS: BLOOD SUGAR DIAGNOSTIC STRIP TEST SCH ×3 (06:56→17:48)
[2020-10-28] MEDS ORDERED: FAMOTIDINE 20MG TABLET PO SCH (07:10)
[2020-10-28] MEDS: INSULIN LISPRO 100 UNITS/ML SUBCUT SCH ×3 (07:29→17:40)
[2020-10-28 08:00] VITALS: BP 122/86
[2020-10-28] MEDS: METOPROLOL TARTRATE 100MG TABLET PO SCH (09:04)
[2020-10-28] MEDS: LEVETIRACETAM 500MG TABLET PO SCH (09:04)
[2020-10-28] MEDS: AMLODIPINE 10MG TABLET PO SCH (09:04)
[2020-10-28] MEDS: FINASTERIDE 5MG TABLET PO SCH (09:04)
[2020-10-28] MEDS: INSULIN GLARGINE UD 100 UNITS/ML SYR SUBCUT SCH (09:57)
[2020-10-28] MEDS: HYDRALAZINE HCL 50MG TABLET PO SCH (09:58)
[2020-10-28] MEDS: MINOXIDIL 10MG TABLET PO SCH (09:58)
[2020-10-28 12:00] VITALS: BP 135/85
[2020-10-28] MEDS: CLONIDINE 0.3MG TABLET PO SCH (12:29)
[2020-10-28 17:07] VITALS: BP 99/61
== END 2020-10-28 20:30 | disposition home or self-care (01) | DRG 144 ==
LOC: ER 21:12 → 8WST 10-25 00:52 → EDBEDREQSVC 10-25 08:20 → ENRESERV 10-25 08:47
PROVIDERS: ADMIT Internal Medicine; ATTEND Internal Medicine
DX: S22.31XA Fracture of one rib, right side, initial encounter for closed fracture (principal); N17.0 Acute kidney failure with tubular necrosis; E11.00 Type 2 diabetes mellitus with hyperosmolarity without nonketotic hyperglycemic-hyperosmolar coma (NKHHC); E11.22 Type 2 diabetes mellitus with diabetic chronic kidney disease; R56.9 Unspecified convulsions; E11.65 Type 2 diabetes mellitus with hyperglycemia; D64.9 Anemia, unspecified; I16.0 Hypertensive urgency; K31.9 Disease of stomach and duodenum, unspecified; N40.1 Benign prostatic hyperplasia with lower urinary tract symptoms; R33.8 Other retention of urine; W18.39XA Other fall on same level, initial encounter; I12.9 Hypertensive chronic kidney disease with stage 1 through stage 4 chronic kidney disease, or unspecified chronic kidney disease; N18.9 Chronic kidney disease, unspecified; Z79.4 Long term (current) use of insulin; Z79.899 Other long term (current) drug therapy; Z79.1 Long term (current) use of non-steroidal anti-inflammatories (NSAID); Y93.89 Activity, other specified; Y92.89 Other specified places as the place of occurrence of the external cause; Y99.8 Other external cause status; E87.1 Hypo-osmolality and hyponatremia; E87.8 Other disorders of electrolyte and fluid balance, not elsewhere classified
CPT/HCPCS: 36415; 71101; 80048; 80053; 82962; 83036; 84443; 85025; 97162; 99285; C1893; J1815; J2270; J2405; J2765; J7030

== ENCOUNTER 2023-07-04 17:39 | Emergency (ER) | payer MEDICAID, OTHER ==
[~2023-07-04] VITALS: Ht 185.4 cm; Wt 85.0 kg
[~2023-07-04 17:39] MED LIST changes: +AMOX-424 MT; +ASPI-1406 MT; -CLON0.3T4 PO; -CLON1PAT12 TD; +DOXY100T2 MT; -GLIP10TA10 PO; -HYDR-4135 PO; -HYDR100T26 PO; +HYDR25TA78 PO; -KEPP500 PO; +LANC-335 MC; +LISI-186 MT; -LISI-186 PO; -LOSA100T3 PO; -METF-414 MT; -METO100T16 PO; -METO5TAB86 MT; -MINO10TA16 PO; -OMEP20TA2 MT; -PANT40TA51 MT; -PHEN300C6 MT; -SIME80TA16 PO; +TAMS-11 PO
[2023-07-04 17:42] VITALS: O2SAT 96
[2023-07-04] MEDS ORDERED: ALBU6.7H15 INH (19:36)
[2023-07-04] MEDS ORDERED: GUAI-741 MT (19:36)
[2023-07-04] MEDS ORDERED: FLUT9.9S BOTHNSTRLS (19:36)
[2023-07-04 21:03] VITALS: BP 161/94; PULSE 85; RESP 17; TEMP 98.6
== END 2023-07-04 20:58 | disposition home or self-care (01) ==
LOC: ER 17:39
DX: J06.9 Acute upper respiratory infection, unspecified (principal); J40 Bronchitis, not specified as acute or chronic; E11.65 Type 2 diabetes mellitus with hyperglycemia; I10 Essential (primary) hypertension; Z98.890 Other specified postprocedural states; Z20.822 Contact with and (suspected) exposure to COVID-19
CPT/HCPCS: 71045; 82962; 87426; 87804; 99284

== ENCOUNTER 2024-01-22 16:36 | Emergency (ER) | payer MEDICAID, OTHER ==
[~2024-01-22] VITALS: Ht 175.3 cm; Wt 80.0 kg
[~2024-01-22 16:36] MED LIST changes: +ALBU6.7H15 INH; +FLUT9.9S BOTHNSTRLS; +GUAI-741 MT; +ONDA-239 PO; -ONDA4TAB11 PO
[2024-01-22 17:29] VITALS: BP 171/88; PULSE 88; RESP 20; TEMP 97.9; O2SAT 99
== END 2024-01-22 23:56 ==
LOC: ER 16:36
DX: M21.611 Bunion of right foot (principal); E11.9 Type 2 diabetes mellitus without complications; I10 Essential (primary) hypertension; Z79.899 Other long term (current) drug therapy; Z79.82 Long term (current) use of aspirin
CPT/HCPCS: 73620; 99283

== ENCOUNTER 2025-01-03 11:23 | Emergency (ER) | payer MEDICAID ==
[~2025-01-03] VITALS: Ht 188 cm; Wt 89.0 kg
[~2025-01-03 11:23] MED LIST changes: -TAMS-11 PO; +TAMS-54 PO
[2025-01-03 11:38] VITALS: O2SAT 99
[2025-01-03 12:49] LABS: BASOPHILS % 1.1 % (0.0-2.0); EOSINOPHILS % 13.8 % (0.0-5.0); HEMATOCRIT. 37.8 % (42.0-52.0); HEMOGLOBIN. 12.6 g/dL (14.0-18.0); LYMPHOCYTES % 30.9 % (20.0-50.0); MEAN PLATELET VOLUME 8.2 fl (7.4-10.4); MONOCYTES % 6.4 % (2.0-8.0); NEUTROPHILS % 47.8 % (40.0-76.0); PLATELET 198 x1000/uL (130-400); RED BLOOD CELL COUNT 4.29 mill/uL (4.7-6.1); RED CELL DISTRIBUTION WIDTH 14.0 % (11.6-14.6)
[2025-01-03 13:15] LABS: UREA NITROGEN BLOOD 29.0 mg/dL (9-23)
[2025-01-03 13:20] LABS: CREATININE 2.9 mg/dL (0.6-1.3)
[2025-01-03] MEDS ORDERED: CYCL5TAB3 MT (14:06)
[2025-01-03] MEDS ORDERED: CELE-116 MT (14:07)
[2025-01-03] MEDS: KETOROLAC 30MG/ML VIAL IM ONE (15:13)
[2025-01-03 16:12] VITALS: BP 133/89; PULSE 75; RESP 18; TEMP 36.7; O2SAT 100
== END 2025-01-03 16:30 ==
LOC: ER 13:08
DX: M54.50 Low back pain, unspecified (principal); E11.22 Type 2 diabetes mellitus with diabetic chronic kidney disease; I12.9 Hypertensive chronic kidney disease with stage 1 through stage 4 chronic kidney disease, or unspecified chronic kidney disease; N18.9 Chronic kidney disease, unspecified; Z79.1 Long term (current) use of non-steroidal anti-inflammatories (NSAID); Z79.899 Other long term (current) drug therapy; Z79.82 Long term (current) use of aspirin
CPT/HCPCS: 99283; 80048; 85025; 36415; 96372; J1885